=== PATIENT | male | born 1940 | race Caucasian/White ===

== ENCOUNTER 2017-06-25 10:22 | Inpatient (IN) | payer OTHER ==
--- NOTE | 2017-06-25 10:46 | PDOC ---
Attending Attestation - Resident Resident Name: ParasKhurram rangel - HPI HPI: 06/25/17 11:20 Pt presents to the ED complaining of a 5 day history of generalized malaise and lightheadness. Patient has a history of lung CA with mets to the brain and had last chemo on saturday. Denies vomiting, chest or abdominal pain or shortness of breath. Denies fevers or urinary complaints. Does complain of increased cough. - Physicial Exam PE: 06/25/17 11:54 agree with resident exam. Patient is alert and oriented x 3. Appears dehydrated, with dry muccous membranes. No abdominal tenderness. Patient is hypotensive and tachycardic on my initial exam. - Medical Decision Making 06/25/17 11:54 Pt presents to the ED with fever and hypotension. Clinical presentation is suggestive of both acute dehydration and sepsis. Will treat with aggressive IV hydration and broad spectrum antibiotics. Patient has a strong preference to be transferred to [facility] in [place], and his oncologist has arranged for his admission there. PAtient has been accepted for admission by Dr. Victor. Will arrange for transfer when blood pressure is improved.
[2017-06-25] MEDS ORDERED: ACETAMINOPHEN 1000 MG/100 ML VIAL (NON FORMULARY) IVPB ONE (10:47)
[2017-06-25] MEDS ORDERED: SODIUM CHLORIDE 0.9% 1000 ML INFUS.BAG IV ONE ×3 (10:47→12:15)
[2017-06-25] MEDS ORDERED: ACETAMINOPHEN INJECTION 100 ML IVPB ONE ×2 (10:48→19:40)
[2017-06-25 11:10] LABS: HEMATOCRIT 29.6 % (35.4-49); HEMOGLOBIN 10.3 GM/dL (11.7-16.9); MCH 33.6 pg (25.7-33.7); MCHC 34.8 g/dl (32.0-35.9); MEAN CELL VOLUME 96.5 fl (80-96); MEAN PLT VOLUME 7.2 fl (7.5-11.1); PLATELET COUNT 157 K/MM3 (134-434); RBC 3.07 M/mm3 (4.00-5.60)
[2017-06-25] MEDS ORDERED: VANCOMYCIN 1,000 MG in DEXTROSE 5%-WATER - 250 ML IVPB ONE (11:20)
[2017-06-25] MEDS ORDERED: PIPERACIL/TAZOB 3.375 GM 3.375 GM/50 ML PREMIX IVPB ONE ×2 (11:20→12:35)
[2017-06-25 11:22] LABS: INR 1.42 (0.82-1.09); PROTHROMBIN TIME (PATIENT) 16.1 SEC (9.98-11.88)
[2017-06-25 11:23] LABS: VENOUS PC02 34.3 mmHg (38-52); VENOUS PH 7.42 (7.32-7.42); VENOUS PO2 38.3 mmHg (28-48)
[2017-06-25 11:24] LABS: ACTIVATED PTT 23.6 SECONDS (26.9-34.4)
[2017-06-25 11:34] LABS: WHITE BLOOD COUNT 0.4 K/mm3 (4.0-10.0)
[2017-06-25] MEDS ORDERED: TBO-FILGRASTIM 480 MCG/0.8 ML DISP.SYRIN SQ ONE (11:34)
[2017-06-25] MEDS ORDERED: VANCOMYCIN 1 GRAM (PRE-DOCKED) 1,000 MG/250 ML BAG IVPB ONE (11:38)
[2017-06-25 11:40] LABS: ALBUMIN 2.1 g/dl (3.4-5.0); ALK PHOS 88 U/L (45-117); ANION GAP 9 (8-16); BILIRUBIN,TOTAL 0.8 mg/dL (0.2-1.0); BLOOD UREA NITROGEN 62 mg/dL (7-18); CALCIUM 7.5 mg/dL (8.5-10.1); CHLORIDE 105 mmol/L (98-107); CO2 23 mmol/L (21-32); CREATININE 1.7 mg/dL (0.7-1.3); GLUCOSE,RANDOM 95 mg/dL (74-106); POTASSIUM 5.2 mmol/L (3.5-5.1); SGOT/AST 23 U/L (15-37); SGPT/ALT 24 U/L (12-78); SODIUM 137 mmol/L (136-145); TOT PROT 5.2 g/dl (6.4-8.2)
--- NOTE | 2017-06-25 12:10 | PDOC ---
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 The patient states that he's felt weak since his last session of chemotherapy last week. He says his weakness has worsened and he has become "dizzy" which he describes as lightheadedness. He denies any symptoms of CP, SOB, fever, chills, nausea, vomiting, diarrhea, constipation, and dysuria. Past History - Past Medical History Allergies/Adverse Reactions: Allergies Allergy/AdvReac Type Severity Reaction Status Date / Time No Known Drug Allergies Allergy Verified 08/06/13 13:04 Home Medications: Ambulatory Orders Acetaminophen [Tylenol .Regular Strength -] 650 mg PO Q6HPO PRN #0 tablet Atorvastatin Ca [Lipitor] 10 mg PO DAILY #0 tablet 08/16/13 Aspirin [ASA -] 81 mg PO DAILY 06/25/17 Gabapentin [Neurontin -] 300 mg PO BID 06/25/17 Anemia: No Asthma: No Cancer: Yes (small cell lung ca mets to brain 03/22/17) Cardiac Disorders: No CVA: No COPD: No CHF: No Dementia: No Diabetes: No GI Disorders: No Disorders: No HTN: Yes Hypercholesterolemia: Yes Liver Disease: No Seizures: No Thyroid Disease: No Other medical history: on chemo at [place] - Surgical History Abdominal Surgery: No Appendectomy: No Cardiac Surgery: No Cholecystectomy: No Lung Surgery: No Neurologic Surgery: No Orthopedic Surgery: Yes (rt hip makoplasty 08/12/13; rt knee surgery 1975) - Suicide/Smoking/Psychosocial Hx Smoking History: Unknown if ever smoked Have you smoked in the past 12 months: Yes Cigars Per Day: 2 Information on smoking cessation initiated: No 'Breaking Loose' booklet given: 08/06/13 Hx Alcohol Use: No Drug/Substance Use Hx: No Substance Use Type: None Hx Substance Use Treatment: No Review of Systems - Review of Systems Able to Perform ROS?: Yes Comments:: 06/25/17 14:38 GENERAL/CONSTITUTIONAL: Positive for weakness and dizziness. No fever or chills. HEAD, EYES, EARS, NOSE AND THROAT: No change in vision. No ear pain or discharge. No sore throat. CARDIOVASCULAR: No chest pain, palpitations, or lightheadedness. RESPIRATORY: No cough, wheezing, shortness of breath, or hemoptysis. GASTROINTESTINAL: No nausea, vomiting, diarrhea, constipation, or abdominal pain. GENITOURINARY: No dysuria, frequency, hematuria, or change in urination. MUSCULOSKELETAL: No joint or muscle swelling or pain. No neck or back pain. SKIN: No rash or lesions. NEUROLOGIC: No headache, numbness, tingling, weakness, loss of consciousness, or change in strength/sensation. ENDOCRINE: No increased thirst. No abnormal weight change. HEMATOLOGIC/LYMPHATIC: No anemia, easy bleeding, or history of blood clots. ALLERGIC/IMMUNOLOGIC: No hives or skin allergy. Is the patient limited Albanian proficient: No *Physical Exam - Vital Signs Last Vital Signs Temp Pulse Resp BP Pulse Ox 102.3 F H 104 H 18 81/53 100 06/25/17 10:30 06/25/17 11:29 06/25/17 11:29 06/25/17 11:29 06/25/17 11:29 - Physical Exam Comments: 06/25/17 14:38 GENERAL: Well developed, well nourished. Awake. Mildly lethargic. HEENT: Normocephalic, atraumatic. Hearing grossly normal. Moist mucous membranes. PERRLA, EOMI. No conjunctival pallor. Sclera are non-icteric. NECK: Supple. Full ROM. No JVD. CARDIOVASCULAR: Regular rate and rhythm. No murmurs, rubs, or gallops. Distal pulses are 2+ and symmetric. PULMONARY: No evidence of respiratory distress. Diffuse coarse breath sounds. ABDOMINAL: Soft. Non-tender. Non-distended. No rebound or guarding. GENITOURINARY: No CVA tenderness bilaterally. MUSCULOSKELETAL: Normal range of motion at all joints. No bony deformities or tenderness. EXTREMITIES: No cyanosis. No clubbing. No edema. No calf tenderness. SKIN: Warm and dry. Normal capillary refill. No rashes. No jaundice. NEUROLOGICAL: Alert, awake, appropriate. Cranial nerves 2-12 intact. Normal speech. Gait is normal without ataxia. PSYCHIATRIC: Cooperative. Good eye contact. Appropriate mood and affect. Heart Score/ECG Review #1 ECG reviewed & interpreted by me at: 10:50 General ECG Interpretation: Sinus Rhythm, Normal Rate, Normal Intervals, No acute ischemic changes Compared to previous ECG there are: Previous ECG unavail 06/25/17 14:40 Sinus tach RBBB noted No acute ischemic changes Rate 123 QRS 130 QTc 475 ED Treatment Course - LABORATORY CBC & Chemistry Diagram: 06/25/17 11:04 06/25/17 11:04 - ADDITIONAL ORDERS Additional order review: Laboratory Results 06/25/17 06/25/17 06/25/17 11:20 11:04 11:04 PT with INR INR PTT (Actin FS) VBG pH 7.42 POC VBG pCO2 34.3 L POC VBG pO2 38.3 Mixed VBG HCO3 21.5 Sodium Potassium Chloride Carbon Dioxide Anion Gap BUN Creatinine Creat Clearance w eGFR Random Glucose Lactic Acid 2.8 H* Calcium Total Bilirubin AST ALT Alkaline Phosphatase Troponin I 0.16 H Total Protein Albumin 06/25/17 06/25/17 11:04 11:04 PT with INR 16.10 H INR 1.42 H PTT (Actin FS) 23.6 L D VBG pH POC VBG pCO2 POC VBG pO2 Mixed VBG HCO3 Sodium 137 Potassium 5.2 H Chloride 105 Carbon Dioxide 23 D Anion Gap 9 BUN 62 H D Creatinine 1.7 H D Creat Clearance w eGFR 39.18 Random Glucose 95 Lactic Acid Calcium 7.5 L Total Bilirubin 0.8 AST 23 D ALT 24 Alkaline Phosphatase 88 D Troponin I Total Protein 5.2 L D Albumin 2.1 L D 06/25/17 11:04 RBC 3.07 L MCV 96.5 H MCHC 34.8 RDW 15.0 MPV 7.2 L D Neutrophils % No Result Required. Lymphocytes % No Result Required. - RADIOLOGY Radiology Studies Ordered: Category Date Time Status CHEST X-RAY PORTABLE* [RAD] Stat Radiology 06/25/17 10:47 Taken - Medications Given in the ED: ED Medications Discontinued Medications Generic Name Dose Route Start Last Admin Trade Name Freq PRN Reason Stop Dose Admin Acetaminophen 1,000 mg 06/25/17 10:47 06/25/17 10:47 Ofirmev Injection - IVPB 06/25/17 10:48 1,000 mg ONCE ONE Administration Sodium Chloride 1,000 ml 06/25/17 10:47 06/25/17 10:40 Normal Saline - IV 06/25/17 10:48 1,000 ml ONCE ONE Administration Sodium Chloride 1,000 ml 06/25/17 11:31 06/25/17 10:55 Normal Saline - IV 06/25/17 11:32 1,000 ml ONCE ONE Administration Medical Decision Making - Medical Decision Making 06/25/17 10:56 The patient is a 76M with a PMH of lung ca s/p chemo and mets to the brain who presents with worsening weakness and dizziness. The patient had incoming vitals significant for hypotension (70's/40's), tachycardia to 130's, and febrile to 102.3. Sepsis protocol is being followed. I have spoken to the patient's oncologist and relayed the labs of WBC 400. She recommends starting neupogen. Pt's family requests transfer to [facility] in [place] where his physicians are. I have instructed them that he will not be transferred until he is stable. Family understands. 06/25/17 11:54 Dr. Galicia (oncology) [phone] Dr. Victor accepts admission for pt. Will call ER for transfer. Dr. Rodarte, ER, does not accept transfer until patient is stable. Family informed. 06/25/17 12:42 I have discussed DNR with the patient. Pt agrees and signed the DNR form. Pt continues to be hypotensive and on 3rd liter. I have discussed a central line and the patient refuses it. I have made it clear that this is the best route for giving pressors. Pt requested for access to his port. I told him if we could not access the port then we might be able to give pressors peripherally. Pt and family understand. 06/25/17 13:30 Dopamine was started. Pt is borderline hypotensive, 91/54. Continuing KVO fluids and dopamine. Dr. Varma accepts admission for ICU consulted for Dr. Pichardo who accepts primary admission. 06/25/17 13:51 CXR shows questionable cavitary process. Will put pt on airborne precautions with negative pressure room. 06/25/17 14:40 Pt improving on dopamine. Will continue infusion at 10. *DC/Admit/Observation/Transfer Diagnosis at time of Disposition: Sepsis Qualifiers: Sepsis type: sepsis due to unspecified organism Qualified Code(s): A41.9 - Sepsis, unspecified organism - Discharge Dispostion Condition at time of disposition: Critical Admit: Yes - Referrals Referrals: Alayna Pichardo MD [Primary Care Provider] - - Patient Instructions - Post Discharge Activity
[2017-06-25] MEDS ORDERED: PIPERACILLIN/TAZOB 3.375 GM 3.375 GM in DEXTROSE 5%-WATER - 50 ML IVPB ONE ×2 (12:15→13:15)
[2017-06-25] MEDS ORDERED: DOPAMINE 400 MG/D5W - 400,000 MCG/250 ML INFUS.BAG IVPB ONE (12:54)
[2017-06-25] MEDS: DOPAMINE 400 MG/D5W - 400,000 MCG/250 ML INFUS.BAG IVPB SCH (13:00)
[2017-06-25] MEDS ORDERED: NAPROXEN 500 MG TABLET (FP) PO ONE (13:12)
[2017-06-25 13:30] LABS: ANISOCYTOSIS 1+; PLATELET ESTIMATE ADEQUATE
[2017-06-25] MEDS ORDERED: PIPERACILLIN/TAZOB 3.375 GM 3.375 GM/50 ML BAG IVPB ONE (13:39)
--- NOTE | 2017-06-25 13:44 | EKG ---
Test Reason : Blood Pressure : / mmHG Vent. Rate : 123 BPM Atrial Rate : 123 BPM P-R Int : 132 ms QRS Dur : 130 ms QT Int : 332 ms P-R-T Axes : 047 049 002 degrees QTc Int : 475 ms SINUS TACHYCARDIA RIGHT BUNDLE BRANCH BLOCK INFERIOR INFARCT (CITED ON OR BEFORE 06-AUG-2013) ABNORMAL ECG Confirmed by Arturo Davidson MD ([id number]) on 06/25/2017 1:43:47 PM Referred By: Confirmed By:Arturo Davidson MD
[2017-06-25 14:00] LABS: URINE APPEARANCE CLEAR; URINE BILIRUBIN NEGATIVE (<2.0 mg/dL); URINE BLOOD NEGATIVE (NEGATIVE); URINE COLOR YELLOW; URINE GLUCOSE (UA) NEGATIVE (NEGATIVE); URINE KETONE NEGATIVE (NEGATIVE); URINE LEUK ESTERASE NEGATIVE (NEGATIVE); URINE NITRITE NEGATIVE (NEGATIVE); URINE PROTEIN NEGATIVE (NEGATIVE); URINE UROBILINOGEN NEGATIVE mg/dL (0.2-1.0)
--- NOTE | 2017-06-25 15:11 | PN ---
Teaching Attending Note Name of Resident: Ramon Pelayo ATTENDING PHYSICIAN STATEMENT I saw and evaluated the patient. I reviewed the resident's note and discussed the case with the resident. I agree with the resident's findings and plan as documented. SUBJECTIVE: 76 M, recent diagnosis of small cell lung CA (diagnosed by FOB), with brain mets, former significant smoker, and HTN. Has received 3 cycles of chemotherapy (last was completed on Saturday). He was not given Neupogen as his WBC was high (Has been on dexamethasone). No travel history or sick contacts. No hemoptysis. No night sweats. Reports generalized weakness and fatigue. He does have some dizziness. CXR: Well circumscribed left mid lung density (patient reports his tumor is on the left). Patient has signed a DNR/DNI. He is currently on 10mcq Dopamine for hemodynamic support via his R[facility] Medi-port. The site appears clean. He has received 3 L of IVF Intake & Output 06/22/17 06/23/17 06/24/17 06/25/17 23:59 23:59 23:59 23:59 Weight 200 lb Last Vital Signs Temp Pulse Resp BP Pulse Ox 102.3 F H 120 H 18 112/52 99 06/25/17 10:30 06/25/17 14:21 06/25/17 14:21 06/25/17 14:21 06/25/17 14:21 Active Medications Dopamine HCl/Dextrose (Dopamine 400 Mg/D5w -) 400,000 mcg in 250 mls @ 17.01 mls/hr IVPB TITR SHIRLEY; 5 MCG/KG/MIN PRN Reason: Protocol Last Titration: 06/25/17 14:05 Dose: 10 mcg/kg/min, 34.019 mls/hr GENERAL: Drowsy, mildly tachypneic at rest HEENT: Normocephalic, atraumatic. (+) Dry mucous membranes. NECK: Supple. Full ROM. No JVD. CARDIOVASCULAR: Tachycardia PULMONARY: Mildy tachypneic at rest, scattered rhonchi ABDOMINAL: Soft. Non-tender. Non-distended. No rebound or guarding. GENITOURINARY: No CVA tenderness bilaterally. MUSCULOSKELETAL: Normal range of motion at all joints. No bony deformities or tenderness. EXTREMITIES: No cyanosis. No clubbing. No edema. No calf tenderness. SKIN: Warm and dry. Normal capillary refill. No rashes. No jaundice. NEUROLOGICAL: Non-focal PSYCHIATRIC: Cooperative. Laboratory Results 06/25/17 06/25/17 06/25/17 11:20 11:04 11:04 PT with INR INR PTT (Actin FS) VBG pH 7.42 POC VBG pCO2 34.3 L POC VBG pO2 38.3 Mixed VBG HCO3 21.5 Sodium Potassium Chloride Carbon Dioxide Anion Gap BUN Creatinine Creat Clearance w eGFR Random Glucose Lactic Acid 2.8 H* Calcium Total Bilirubin AST ALT Alkaline Phosphatase Troponin I 0.16 H Total Protein Albumin 06/25/17 06/25/17 11:04 11:04 PT with INR 16.10 H INR 1.42 H PTT (Actin FS) 23.6 L D VBG pH POC VBG pCO2 POC VBG pO2 Mixed VBG HCO3 Sodium 137 Potassium 5.2 H Chloride 105 Carbon Dioxide 23 D Anion Gap 9 BUN 62 H D Creatinine 1.7 H D Creat Clearance w eGFR 39.18 Random Glucose 95 Lactic Acid Calcium 7.5 L Total Bilirubin 0.8 AST 23 D ALT 24 Alkaline Phosphatase 88 D Troponin I Total Protein 5.2 L D Albumin 2.1 L D 06/25/17 11:04 RBC 3.07 L MCV 96.5 H MCHC 34.8 RDW 15.0 MPV 7.2 L D Neutrophils % No Result Required. Lymphocytes % No Result Required. IMP: Septic Shock: source to be determined R/O PNA R/O UTI Known metastatic Small Cell Lung CA to brain Neutropenia Likely COPD PLAN: Aggressive IVF resuscitation Pressors to maintain MAP>65 : Can change to Levophed via the Medi-port if needed Strict I&O O2 as needed BD TX PRN ID consult for broad spectrum ABX Follow lactate Neupogen has been ordered Patient has made himself DNR/DNI ICU monitoring Dr Varma Critical care time spent in reviewing chart, evaluating patient and formulating plan - 36 minutes.
--- NOTE | 2017-06-25 15:46 | CONSULT ---
Consultation: ICU Resident note HISTORY OF PRESENT ILLNESS: 76yo F with significant history of Small cell lung carcinoma (dx'd February 2017; on 3rd cycle of chemotherapy which ended on last Saturday) with brain mets, HTN, HLD, osteoarthritis, and spinal stenosis who presented to the ED with worsening weakness and lightheadedness. He states that he has felt weak since his last session of chemotherapy on 06/19. Pt reports being treated at [facility] under Dr. Rosy Galicia and that he is undergoing his third cycle of chemotherapy with an agent he does not remember. Pt also reports being diagnosed with brain mets recently and undergoing treatment with 4mg Dexamethasone TID. In addition, pt endorses some loose stools this past week without any blood noted. He reports some foul-smelling BM's. Pt denies any travel and only had a pasta dish at a regular restaurant. In the ED he was found to be hypotensive and despite 3L IVF he required dopamine to be initiated for pressure support. Currently, pt still feels very weak, however he has no other complaints at this time. Pt denies any headaches, visual changes, nausea, vomiting, SOB, CP/ discomfort, palpitations, abdominal pain, dysuria, polyuria, sick contacts. Pt reports some slight edema in his lower extremities due to his dexamethasone and chemotherapy regiments, however he denies it prior to his dexamethasone use. ER Course notables: 1) WBC 0.4 with ANC of 256 2) CXR with L cavitary lesion noted; suspect pleural effusion vs infiltrate on L lower base of lung 3) 3L NS; dopamine 10mcg 4) Blood cultures and urine cultures drawn PHYSICAL EXAMINATION Vital Signs Initial presentation 06/25/17 06/25/17 10:30 10:50 Temperature 102.3 F H Pulse Rate 125 H Pulse Rate [ 118 H Apical] Respiratory 18 16 Rate Blood Pressure 102/75 Blood Pressure 76/49 [Left Arm] O2 Sat by Pulse 100 99 Oximetry (%) Vital Signs Current 06/25/17 15:30 Temperature Pulse Rate Pulse Rate [ 99 H Apical] Respiratory 18 Rate Blood Pressure Blood Pressure 96/41 [Left Arm] O2 Sat by Pulse 99 Oximetry (%) GENERAL: Mild distress, awake, alert and oriented x3, in Trendelenburg laying in bed HEENT: NC/AT, EOMI, ROSE M[place], sclera anicteric, no plaques/exudates in posterior oropharynx or tongue, dry-moist mucosa NECK: No JVD, no lymphadenopathy, soft LUNGS: Rhonchous lung sounds L>R, wheezing noted bibasillarly, no rales. Currently on NC. HEART: RRR, normal S1 and S2 with 2/6 systolic murmur heard best at the LLSB ABDOMEN: Soft, nontender, nondistended, normoactive bowel sounds, no guarding, no hepatomegaly to percussion or palpation, no splenomegaly. No shifting dullness appreciated MUSCULOSKELETAL: No pain with palpation of spinous processes. No CVA tenderness. EXTREMITIES: 2+ DP pulses, warm, well-perfused. 1+ pitting edema PSYCHIATRIC: Cooperative. Good eye contact. Appropriate mood and affect. SKIN: Warm, dry, normal turgor, no rashes or lesions noted. Mediport noted on L chest wall without any erythema noted. Laboratory Results - last 24 hr 06/25/17 06/25/17 06/25/17 11:04 11:04 11:04 WBC 0.4 L* D RBC 3.07 L Hgb 10.3 L D Hct 29.6 L MCV 96.5 H MCH 33.6 MCHC 34.8 RDW 15.0 Plt Count 157 MPV 7.2 L D Neutrophils % No Result Required. Neutrophils % (Manual) 64.0 Band Neutrophils % 6.0 Lymphocytes % No Result Required. Lymphocytes % (Manual) 27.0 Monocytes % (Manual) 8 Hypochromia 1+ Platelet Estimate Adequate Platelet Comment No clumping noted Anisocytosis 1+ PT with INR 16.10 H INR 1.42 H PTT (Actin FS) 23.6 L D VBG pH POC VBG pCO2 POC VBG pO2 Mixed VBG HCO3 Sodium 137 Potassium 5.2 H Chloride 105 Carbon Dioxide 23 D Anion Gap 9 BUN 62 H D Creatinine 1.7 H D Creat Clearance w eGFR 39.18 Random Glucose 95 Lactic Acid Calcium 7.5 L Total Bilirubin 0.8 AST 23 D ALT 24 Alkaline Phosphatase 88 D Troponin I Total Protein 5.2 L D Albumin 2.1 L D Urine Color Urine Appearance Urine pH Ur Specific Saxis Urine Protein Urine Glucose (UA) Urine Ketones Urine Blood Urine Nitrite Urine Bilirubin Urine Urobilinogen Ur Leukocyte Esterase 06/25/17 06/25/17 06/25/17 11:04 11:04 11:20 WBC RBC Hgb Hct MCV MCH MCHC RDW Plt Count MPV Neutrophils % Neutrophils % (Manual) Band Neutrophils % Lymphocytes % Lymphocytes % (Manual) Monocytes % (Manual) Hypochromia Platelet Estimate Platelet Comment Anisocytosis PT with INR INR PTT (Actin FS) VBG pH 7.42 POC VBG pCO2 34.3 L POC VBG pO2 38.3 Mixed VBG HCO3 21.5 Sodium Potassium Chloride Carbon Dioxide Anion Gap BUN Creatinine Creat Clearance w eGFR Random Glucose Lactic Acid 2.8 H* Calcium Total Bilirubin AST ALT Alkaline Phosphatase Troponin I 0.16 H Total Protein Albumin Urine Color Urine Appearance Urine pH Ur Specific Saxis Urine Protein Urine Glucose (UA) Urine Ketones Urine Blood Urine Nitrite Urine Bilirubin Urine Urobilinogen Ur Leukocyte Esterase 06/25/17 06/25/17 13:43 14:27 WBC RBC Hgb Hct MCV MCH MCHC RDW Plt Count MPV Neutrophils % Neutrophils % (Manual) Band Neutrophils % Lymphocytes % Lymphocytes % (Manual) Monocytes % (Manual) Hypochromia Platelet Estimate Platelet Comment Anisocytosis PT with INR INR PTT (Actin FS) VBG pH POC VBG pCO2 POC VBG pO2 Mixed VBG HCO3 Sodium Potassium Chloride Carbon Dioxide Anion Gap BUN Creatinine Creat Clearance w eGFR Random Glucose Lactic Acid 1.9 Calcium Total Bilirubin AST ALT Alkaline Phosphatase Troponin I Total Protein Albumin Urine Color Yellow Urine Appearance Clear Urine pH 5.0 Ur Specific Saxis 1.014 Urine Protein Negative Urine Glucose (UA) Negative Urine Ketones Negative Urine Blood Negative Urine Nitrite Negative Urine Bilirubin Negative Urine Urobilinogen Negative Ur Leukocyte Esterase Negative Active Medications Generic Name Dose Route Start Last Admin Trade Name Freq PRN Reason Stop Dose Admin Dopamine HCl/Dextrose 400,000 mcg in 250 mls @ 17.01 mls/hr 06/25/17 13:00 14:05 Dopamine 400 Mg/D5w - IVPB 10 mcg/kg/min TITR SHIRLEY 34.019 mls/hr Protocol Titration 5 MCG/KG/MIN ASSESSMENT/PLAN: Neuro: Neurologically intact Respiratory: Maintain SpO2 >88-90% Pt is DNI CXR showing cavitary lesion --CT Chest w/o contrast ordered for assessment Cardiovascular: Systolic murmur --Echocardiogram r/o CHF and valvular abnormalities History of HTN --Hold anithypertensives Elevated Troponins --Most likely demand ischemia in setting of hypotension/septic shock --Will trend values until downtrending --ECG showing ____ Renal: Acute Kidney Injury --Cr 1.7 with baseline 0.9-1.0 --Most likely prerenal etiology with BUN:Cr ratio >20:1 --Will obtain urine electrolytes --Will repeat BMP later and reassess kidney function after IVF hydration ID: Septic shock --CXR showing cavitary lesion and delineated L pleural effusion --R/o TB with AFB staining (given pt hx of hemoptysis) --r/o neutropenic PNA vs. empyema vs. with CT Chest w/o contrast if hemodynamically stable on pressors --Airborne Isolation precautions to continue --Negative pressure room --Currently on Dopamine 10mcg started in ED through chemoport --If pt requires further hemodynamic support put on Levophed and titrate up as needed --IVF as below; bolus as needed --Continue vancomycin and Zosyn for now; will cover for 24hr period --ID on board --Will discuss about antibiotic choice and possible expanding to atypical coverage --F/u Blood cultures, urine cultures --C diff (history of foul stools) culture --Stool ova and parasites given immunocompromised state --Ofirmev IVPB q6h PRN for fever (do not exceed 4gm in 24h period) --LA 2.8, 1.9; will trend one more considering last is borderline elevated , but resolving with fluid hydration Hematology/Oncology: Small cell lung carcinoma with brain mets --Being treated at [facility] by Dr. Rosy Galicia --Was previously on Dexamethasone for brain mets --Last chemo: Last Saturday06/19/2017 on 3rd cycle --Consulted oncology; recs appreciated --Need to cover dexamethasone chronic use to avoid adrenal insufficiency --Ordered 4mg IVP once now --Granix as below --Will attempt to contact Dr. Galicia about treatment Severe Neutropenia --ANC 256 --Granix given once in ED at 1135h (06/25/2017) --Will likely need more doses, but will reassess next morning --Cutoff is ANC 1500 FEN: Fluids: NS@125cc/hr (received 3L bolus in ED); continue to bolus as needed Electrolyte abnormalities: Hyperkalemia w/o acute ECG changes; repeat tonight ; possible Nutrition: PPX: DVT - SCDs GI - not currently indicated Code status: DNR/DNI Dispo: Pt hemodynamically requiring pressors; ICU monitoring Ramon Pelayo DO - IM PGY-1 Visit type - Emergency Visit Emergency Visit: No - New Patient This patient is new to me today: Yes Date on this admission: 06/26/17 - Critical Care Critical Care patient: Yes Total Critical Care Time (in minutes): 45 Critical Care Statement: The care of this patient involved high complexity decision making to prevent further life threatening deterioration of the patient 's condition and/or to evaluate & treat vital organ system(s) failure or risk of failure.
[2017-06-25] MEDS ORDERED: SODIUM CHLORIDE 1,000 ML IV SCH (16:15)
[2017-06-25] MEDS ORDERED: FAMOTIDINE IV 20 MG/12 ML VIAL IVPUSH SCH ×2 (18:13→22:00)
[2017-06-25] MEDS ORDERED: FAMOTIDINE 20 MG/50 ML IVPB 20 MG/50 ML MG IVPB ONE (18:16)
[2017-06-25 19:06] VITALS: BMI 29.3
[2017-06-25] MEDS: ACETAMINOPHEN 1000 MG/100 ML VIAL (NON FORMULARY) IVPB PRN (19:20)
[2017-06-25] MEDS ORDERED: PIPERACIL/TAZOB 3.375 GM 3.375 GM/50 ML PREMIX IVPB SCH (21:45)
[2017-06-25] MEDS ORDERED: PIPERACILLIN/TAZOB 3.375 GM 3.375 GM in DEXTROSE 5%-WATER - 50 ML IVPB SCH (22:00)
[2017-06-25] MEDS ORDERED: DEXAMETHASONE SOD PHOSPHATE 4 MG/1 ML VIAL IVPUSH ONE (22:36)
[2017-06-25] MEDS: FAMOTIDINE 20 MG/50 ML IVPB 20 MG/50 ML MG IVPB SCH (22:45)
[2017-06-25] MEDS: PIPERACILLIN/TAZOB 2.25 GM 2.25 GM in DEXTROSE 5%-WATER - 50 ML IVPB SCH (22:47)
[2017-06-25 23:19] LABS: ANION GAP 9 (8-16); BLOOD UREA NITROGEN 50 mg/dL (7-18); CHLORIDE 108 mmol/L (98-107); CO2 22 mmol/L (21-32); CREATININE 1.3 mg/dL (0.7-1.3); GLUCOSE,RANDOM 115 mg/dL (74-106); POTASSIUM 4.1 mmol/L (3.5-5.1); SODIUM 139 mmol/L (136-145)
[2017-06-26] MEDS: PIPERACILLIN/TAZOB 2.25 GM 2.25 GM in DEXTROSE 5%-WATER - 50 ML IVPB SCH (01:23)
[2017-06-26 06:20] LABS: HEMATOCRIT 23.3 % (35.4-49); HEMOGLOBIN 8.4 GM/dL (11.7-16.9); MCH 34.7 pg (25.7-33.7); MEAN CELL VOLUME 96.4 fl (80-96); MEAN PLT VOLUME 7.3 fl (7.5-11.1); PLATELET COUNT 97 K/MM3 (134-434); RBC 2.42 M/mm3 (4.00-5.60); RDW 14.9 % (11.9-15.9)
[2017-06-26 06:33] LABS: WHITE BLOOD COUNT 0.3 K/mm3 (4.0-10.0)
[2017-06-26 07:03] LABS: ALBUMIN 1.8 g/dl (3.4-5.0); ANION GAP 9 (8-16); BLOOD UREA NITROGEN 44 mg/dL (7-18); CALCIUM 7.7 mg/dL (8.5-10.1); CHLORIDE 108 mmol/L (98-107); CO2 24 mmol/L (21-32); CREATININE 1.1 mg/dL (0.7-1.3); GLUCOSE,RANDOM 97 mg/dL (74-106); MAGNESIUM 1.1 mg/dL (1.8-2.4); PHOSPHOROUS 3.6 mg/dL (2.5-4.9); POTASSIUM 3.7 mmol/L (3.5-5.1); SGOT/AST 20 U/L (15-37); SGPT/ALT 21 U/L (12-78); SODIUM 141 mmol/L (136-145); TOT PROT 4.4 g/dl (6.4-8.2)
[2017-06-26 07:04] LABS: ALK PHOS 74 U/L (45-117)
--- NOTE | 2017-06-26 08:37 | PN ---
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 Admitted with sepsis and neutropenia - Current Medication List Current Medications: Active Medications Acetaminophen (Ofirmev Injection -) 1,000 mg IVPB Q6H PRN PRN Reason: FEVER Last Admin: 06/25/17 19:20 Dose: 1,000 mg Dopamine HCl/Dextrose (Dopamine 400 Mg/D5w -) 400,000 mcg in 250 mls @ 17.01 mls/hr IVPB TITR SHIRLEY; 5 MCG/KG/MIN PRN Reason: Protocol Last Titration: 06/25/17 14:05 Dose: 10 mcg/kg/min, 34.019 mls/hr Famotidine/Sodium Chloride (Pepcid 20 Mg Premixed Ivpb -) 20 mg in 50 mls @ 144 mls/hr IVPB BID SHIRLEY Last Admin: 06/25/17 22:45 Dose: 144 mls/hr Piperacillin Sod/Tazobactam (Sod 2.25 gm/ Dextrose) 50 mls @ 100 mls/hr IVPB Q8H-IV SHIRLEY PRN Reason: Protocol Last Admin: 06/26/17 01:23 Dose: Not Given Sodium Chloride (Normal Saline -) 1,000 mls @ 50 mls/hr IV ASDIR SHIRLEY Magnesium Sulfate (Magnesium Sulfate) 2 gm IVPB ONCE ONE Stop: 06/26/17 08:10 - Objective Vital Signs: Vital Signs Temperature 98.6 F 06/26/17 06:00 Pulse Rate 85 06/26/17 08:00 Respiratory Rate 26 H 06/26/17 08:00 Blood Pressure 113/55 06/26/17 08:00 O2 Sat by Pulse Oximetry (%) 99 06/25/17 21:00 Constitutional: Yes: Mild Distress Eyes: Yes: WNL HENT: Yes: WNL Neck: Yes: WNL Cardiovascular: Yes: Regular Rate and Rhythm Respiratory: Yes: On Nasal O2 Gastrointestinal: Yes: Normal Bowel Sounds ...Rectal Exam: Yes: Deferred Genitourinary: Yes: WNL Musculoskeletal: Yes: Muscle Weakness Extremities: Yes: WNL Edema: No Neurological: Yes: Alert Labs: CBC, BMP 06/26/17 06:05 06/26/17 06:05 INR, PTT INR 1.42 (0.82-1.09) H 06/25/17 11:04 Assessment/Plan Oncology consult Dr Montano
[2017-06-26] MEDS ORDERED: MAGNESIUM SULF 50% (8.12 MEQ/2 ML-1 GM VIAL) IVPB ONE (09:00)
[2017-06-26] MEDS: SODIUM CHLORIDE 1,000 ML IV SCH (09:00)
--- NOTE | 2017-06-26 09:21 | PN ---
Physical Exam: SUBJECTIVE: Patient seen and examined in the ICU. Pt reports feeling much better today compared to yesterday, though pt endorses still feeling weak. Pt reports cough productive of white sputum. Pt denies headache, lightheadedness, dizziness, fever, chills, chest pain, sob, abdominal pain. Pt on pressors. OBJECTIVE: Vital Signs Period Temp Pulse Resp BP Sys/Cervantes Pulse Ox Last 24 Hr 98.6 F-102.3 F 85-125 16-26 76-129/41-86 95-100 GENERAL: The patient is awake, alert, and fully oriented, in no acute distress. HEAD: Normal with no signs of trauma. NECK: Trachea midline, full range of motion, supple. LUNGS: Scattered rhonchi appreciated. No crackles or accessory muscle use. HEART: Regular rate and rhythm, +S1/S2. ABDOMEN: Soft, nontender, nondistended, normoactive bowel sounds, no guarding. EXTREMITIES: Pedal edema noted and 1+ edema to Left LE. Tequila capillary refill appreciated. PSYCH: Normal mood, normal affect. Laboratory Results - last 24 hr 06/25/17 06/25/17 06/25/17 11:04 11:04 11:04 WBC 0.4 L* D RBC 3.07 L Hgb 10.3 L D Hct 29.6 L MCV 96.5 H MCH 33.6 MCHC 34.8 RDW 15.0 Plt Count 157 MPV 7.2 L D Neutrophils % No Result Required. Neutrophils % (Manual) 64.0 Band Neutrophils % 6.0 Lymphocytes % No Result Required. Lymphocytes % (Manual) 27.0 Monocytes % (Manual) 8 Hypochromia 1+ Platelet Estimate Adequate Platelet Comment No clumping noted Anisocytosis 1+ PT with INR 16.10 H INR 1.42 H PTT (Actin FS) 23.6 L D VBG pH POC VBG pCO2 POC VBG pO2 Mixed VBG HCO3 Sodium 137 Potassium 5.2 H Chloride 105 Carbon Dioxide 23 D Anion Gap 9 BUN 62 H D Creatinine 1.7 H D Creat Clearance w eGFR 39.18 Random Glucose 95 Lactic Acid Calcium 7.5 L Phosphorus Magnesium Total Bilirubin 0.8 AST 23 D ALT 24 Alkaline Phosphatase 88 D Troponin I Total Protein 5.2 L D Albumin 2.1 L D Urine Color Urine Appearance Urine pH Ur Specific Manito Urine Protein Urine Glucose (UA) Urine Ketones Urine Blood Urine Nitrite Urine Bilirubin Urine Urobilinogen Ur Leukocyte Esterase 06/25/17 06/25/17 06/25/17 11:04 11:04 11:20 WBC RBC Hgb Hct MCV MCH MCHC RDW Plt Count MPV Neutrophils % Neutrophils % (Manual) Band Neutrophils % Lymphocytes % Lymphocytes % (Manual) Monocytes % (Manual) Hypochromia Platelet Estimate Platelet Comment Anisocytosis PT with INR INR PTT (Actin FS) VBG pH 7.42 POC VBG pCO2 34.3 L POC VBG pO2 38.3 Mixed VBG HCO3 21.5 Sodium Potassium Chloride Carbon Dioxide Anion Gap BUN Creatinine Creat Clearance w eGFR Random Glucose Lactic Acid 2.8 H* Calcium Phosphorus Magnesium Total Bilirubin AST ALT Alkaline Phosphatase Troponin I 0.16 H Total Protein Albumin Urine Color Urine Appearance Urine pH Ur Specific Manito Urine Protein Urine Glucose (UA) Urine Ketones Urine Blood Urine Nitrite Urine Bilirubin Urine Urobilinogen Ur Leukocyte Esterase 06/25/17 06/25/17 06/25/17 13:43 14:27 20:00 WBC RBC Hgb Hct MCV MCH MCHC RDW Plt Count MPV Neutrophils % Neutrophils % (Manual) Band Neutrophils % Lymphocytes % Lymphocytes % (Manual) Monocytes % (Manual) Hypochromia Platelet Estimate Platelet Comment Anisocytosis PT with INR INR PTT (Actin FS) VBG pH POC VBG pCO2 POC VBG pO2 Mixed VBG HCO3 Sodium Potassium Chloride Carbon Dioxide Anion Gap BUN Creatinine Creat Clearance w eGFR Random Glucose Lactic Acid 1.9 Calcium Phosphorus Magnesium Total Bilirubin AST ALT Alkaline Phosphatase Troponin I 0.17 H Total Protein Albumin Urine Color Yellow Urine Appearance Clear Urine pH 5.0 Ur Specific Manito 1.014 Urine Protein Negative Urine Glucose (UA) Negative Urine Ketones Negative Urine Blood Negative Urine Nitrite Negative Urine Bilirubin Negative Urine Urobilinogen Negative Ur Leukocyte Esterase Negative 06/25/17 06/25/17 06/26/17 21:50 21:50 06:05 WBC 0.3 L* RBC 2.42 L D Hgb 8.4 L D Hct 23.3 L D MCV 96.4 H MCH 34.7 H MCHC 36.0 H RDW 14.9 Plt Count 97 L D MPV 7.3 L Neutrophils % Neutrophils % (Manual) Band Neutrophils % Lymphocytes % Lymphocytes % (Manual) Monocytes % (Manual) Hypochromia Platelet Estimate Platelet Comment Anisocytosis PT with INR INR PTT (Actin FS) VBG pH POC VBG pCO2 POC VBG pO2 Mixed VBG HCO3 Sodium 139 Potassium 4.1 D Chloride 108 H Carbon Dioxide 22 Anion Gap 9 BUN 50 H Creatinine 1.3 D Creat Clearance w eGFR Random Glucose 115 H D Lactic Acid 1.4 Calcium 7.0 L Phosphorus Magnesium Total Bilirubin AST ALT Alkaline Phosphatase Troponin I Total Protein Albumin Urine Color Urine Appearance Urine pH Ur Specific Manito Urine Protein Urine Glucose (UA) Urine Ketones Urine Blood Urine Nitrite Urine Bilirubin Urine Urobilinogen Ur Leukocyte Esterase 06/26/17 06:05 WBC RBC Hgb Hct MCV MCH MCHC RDW Plt Count MPV Neutrophils % Neutrophils % (Manual) Band Neutrophils % Lymphocytes % Lymphocytes % (Manual) Monocytes % (Manual) Hypochromia Platelet Estimate Platelet Comment Anisocytosis PT with INR INR PTT (Actin FS) VBG pH POC VBG pCO2 POC VBG pO2 Mixed VBG HCO3 Sodium 141 Potassium 3.7 Chloride 108 H Carbon Dioxide 24 Anion Gap 9 BUN 44 H Creatinine 1.1 Creat Clearance w eGFR > 60 Random Glucose 97 Lactic Acid Calcium 7.7 L Phosphorus 3.6 Magnesium 1.1 L Total Bilirubin 1.0 D AST 20 ALT 21 Alkaline Phosphatase 74 Troponin I Total Protein 4.4 L Albumin 1.8 L Urine Color Urine Appearance Urine pH Ur Specific Manito Urine Protein Urine Glucose (UA) Urine Ketones Urine Blood Urine Nitrite Urine Bilirubin Urine Urobilinogen Ur Leukocyte Esterase Active Medications Generic Name Dose Route Start Last Admin Trade Name Freq PRN Reason Stop Dose Admin Acetaminophen 1,000 mg 06/25/17 16:10 06/25/17 19:20 Ofirmev Injection - IVPB 1,000 mg Q6H PRN Administration FEVER Dopamine HCl/Dextrose 400,000 mcg in 250 mls @ 17.01 mls/hr 06/25/17 13:00 14:05 Dopamine 400 Mg/D5w - IVPB 10 mcg/kg/min TITR SHIRLEY 34.019 mls/hr Protocol Titration 5 MCG/KG/MIN Famotidine/Sodium Chloride 20 mg in 50 mls @ 144 mls/hr 06/25/17 22:30 22:45 Pepcid 20 Mg Premixed Ivpb - IVPB 144 mls/hr BID SHIRLEY Administration Piperacillin Sod/Tazobactam 50 mls @ 100 mls/hr 06/26/17 02:00 06/26/17 01:23 Sod 2.25 gm/ Dextrose IVPB Not Given Q8H-IV SHIRLEY Protocol Sodium Chloride 1,000 mls @ 50 mls/hr 06/26/17 08:11 Normal Saline - IV ASDIR SHIRLEY Magnesium Sulfate 2 gm 06/26/17 08:09 Magnesium Sulfate IVPB 06/26/17 08:10 ONCE ONE IMAGIN06/25/17 CXR -> Left hemithorax with questionable cavitary process 06/25/[address] -> Large Left upper lobe masslike opacity with cavitation (Ddx: cavitary malignant neoplasm vs post-treatment effect vs superimposed cavitary lesion like TB). Irregular nodule opacity in Left lower lobe and vague groundglass opacities in Right lower lobe, possibly infectious vs inflammatory. 18mm solid Left upper lobe nodule, and irregular 9-10mm solid Right upper lobe nodule noted. Segmental atelectasis in lingula noted. 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 # neutropenic septic shock - likely 2/2 lung source - neutropenia -> continue Granix daily - afebrile since last evening -> Ofirmev prn for fever - IVFs - on pressors: Dopamine (reduced from 10 to 4 mcg) - maintain MAP > 65 - O2 prn - Day 1 of IV Zosyn, IV Vanc given in the ER - ID (Dr. Coker) recs appreciated - maintain droplet precaution with N95 masks 2/2 cavitary lesion in lung - f/u blood, urine, sputum, and c.diff cultures # Small Cell Lung Ca with mets to brain - being treated at [facility] by Dr. Rosy Galicia - just completed third cycle of chemotherapy (last dose 06/19/17) - has home med of Dexamethasone for brain mets - Oncology (Dr. Issa) recs appreciated # acute anemia - transfuse for hgb < 7.0 - monitor for overt s/s of bleeding - f/u CBC # ROSANGELA - resolved - Cr back to baseline 0.9-1.0 # troponinemia - likely 2/2 demand ischemia related to septic shock - peaked at 0.17, now trending down - no need to trend further # htn - hold home meds as pt is on pressors # FEN - Fluids: NS @ 50 ml/hr - Electrolytes: hypomagnesemia repleted with Magnesium Sulfate 1g IVPB, continue to monitor - Nutrition: soft diet # Prophylaxis - DVT ppx with tequila SCDs (no chemoprophylaxis 2/2 thrombocytopenia) - GI ppx with Pepcid # dispo - Pt is DNR/DNI - continue ICU monitoring while requiring pressors Visit type - Emergency Visit Emergency Visit: Yes ED Registration Date: 06/25/17 Care time: The patient presented to the Emergency Department on the above date and was hospitalized for further evaluation of their emergent condition. - New Patient This patient is new to me today: Yes Date on this admission: 06/26/17 - Critical Care Critical Care patient: Yes Total Critical Care Time (in minutes): 45 Critical Care Statement: The care of this patient involved high complexity decision making to prevent further life threatening deterioration of the patient 's condition and/or to evaluate & treat vital organ system(s) failure or risk of failure.
--- NOTE | 2017-06-26 09:56 | CON.ID ---
Consult Consult Specialty:: infectious diseases Referred by:: Reason for Consultation:: sepsis - History of Present Illness Chief Complaint: ams weakness lethargy History of Present Illness: 76yo F with significant history of Small cell lung carcinoma diagnosed recently on 3rd cycle of chemotherapy which ended on last Saturday also patient with brain mets, HTN, HLD, osteoarthritis, and spinal stenosis admitted to icu with worsening weakness and lightheadedness. He states that he has felt weak since his last session of chemotherapy on 06/19. w. Pt also reports being diagnosed with brain mets recently and undergoing treatment with 4mg Dexamethasone TID. In addition, pt endorses some loose stools this past week without any blood noted. He reports some foul-smelling BM's. patient mentions that he literally passed out and his daughter is in the room with him. He did not know what was happening and was found to be hypotensive and febrile and was admitted to icu and was started on dopamin. according to the patient his wbc was pretty high intially after chemo and he refused neulasta patch post chemo. denies any sick contacts or travel. currently patient is feeling better.mental status has improved still on dopamine drip about 4 mcg and maintaining bp patinet currently appears to be comfortable - History Source History Provided By: Patient, Family Member Limitations to Obtaining History: No Limitations - Alcohol/Substance Use Hx Alcohol Use: No - Smoking History Smoking history: Unknown if ever smoked Have you smoked in the past 12 months: Yes Home Medications - Allergies Allergies/Adverse Reactions: Allergies Allergy/AdvReac Type Severity Reaction Status Date / Time No Known Drug Allergies Allergy Verified 08/06/13 13:04 - Home Medications Home Medications: Ambulatory Orders Acetaminophen [Tylenol .Regular Strength -] 650 mg PO Q6HPO PRN #0 tablet Atorvastatin Ca [Lipitor] 10 mg PO DAILY #0 tablet 08/16/13 Aspirin [ASA -] 81 mg PO DAILY 06/25/17 Dexamethasone 4 mg PO TID 06/25/17 Gabapentin [Neurontin -] 300 mg PO TID 06/25/17 Telmisartan/Hydrochlorothiazid [Micardis Hct 80-25 mg Tablet] 1 each PO DAILY Review of Systems - Review of Systems Constitutional: reports: Fever Eyes: reports: No Symptoms HENT: reports: No Symptoms Neck: reports: No Symptoms Cardiovascular: reports: No Symptoms Respiratory: reports: SOB Gastrointestinal: reports: Diarrhea Genitourinary: reports: No Symptoms Musculoskeletal: reports: No Symptoms Integumentary: reports: No Symptoms Neurological: reports: Change in LOC Endocrine: reports: No Symptoms Hematology/Lymphatic: reports: No Symptoms Psychiatric: reports: No Symptoms Physical Exam Vital Signs: Vital Signs Temperature 98.6 F 06/26/17 06:00 Pulse Rate 85 06/26/17 08:00 Respiratory Rate 26 H 06/26/17 08:00 Blood Pressure 113/55 06/26/17 08:00 O2 Sat by Pulse Oximetry (%) 99 06/25/17 21:00 Constitutional: Yes: Well Nourished, No Distress, Calm Eyes: Yes: Conjunctiva Clear HENT: Yes: Atraumatic, Normocephalic Cardiovascular: Yes: Regular Rate and Rhythm Respiratory: Yes: Regular, On Nasal O2, Poor Air Entry, Wheezes Gastrointestinal: Yes: Normal Bowel Sounds, Soft. No: Tenderness, Vomiting Musculoskeletal: Yes: WNL Extremities: Yes: WNL Neurological: Yes: Alert, Oriented Psychiatric: Yes: Alert, Oriented Labs: CBC, BMP 06/26/17 06:05 06/26/17 06:05 Imaging - Results Chest X-ray: Report Reviewed, Image Reviewed Cat Scan: Report Reviewed, Image Reviewed Assessment/Plan patient coming in with sepsis post chemo including neutropenia and fever currently stable all work up send septic shock no clear source r/o pna or uti or colitis small cell lung ca with mets to the brain Neutropenia patient also being worked up for tb which i highly doubt i have looked at the report of ct scan from [facility] which was done recently and the ct scan now plan zosyn await for for all cx report continue pressors as needed hydration rest as per the icu team monitor for fevers cc time 45 min
[2017-06-26] MEDS ORDERED: PT OWN MED DRAWER 7, Y5N ONE (10:09)
[2017-06-26] MEDS ORDERED: TBO-FILGRASTIM 300 MCG/0.5 ML DISP.SYRINGE SQ SCH (10:30)
[2017-06-26] MEDS: FAMOTIDINE 20 MG/50 ML IVPB 20 MG/50 ML MG IVPB SCH ×2 (11:02→21:34)
--- NOTE | 2017-06-26 12:05 | PN ---
Teaching Attending Note Name of Resident: Lakesha Cooper ATTENDING PHYSICIAN STATEMENT I saw and evaluated the patient. I reviewed the resident's note and discussed the case with the resident. I agree with the resident's findings and plan as documented. SUBJECTIVE: Pt seen and examined in the ICU. Remains on dopamine gtt. Feels better today. Fever curve trending down. OBJECTIVE: Last Vital Signs Temp Pulse Resp BP Pulse Ox 98.5 F 86 25 H 107/49 99 06/26/17 10:00 06/26/17 10:00 06/26/17 10:00 06/26/17 10:00 06/25/17 21:00 Intake & Output 06/23/17 06/24/17 06/25/17 06/26/17 23:59 23:59 23:59 23:59 Intake Total 1790 Balance 1790 Weight 90.356 kg 90.356 kg Gen: mildly tachypneic at rest Heart: RRR Lung: left sided rhonchi Abd: soft, nontender Ext: no edema CBC, BMP 06/26/17 06:05 06/26/17 06:05 Active Medications Acetaminophen (Ofirmev Injection -) 1,000 mg IVPB Q6H PRN PRN Reason: FEVER Last Admin: 06/25/17 19:20 Dose: 1,000 mg Dopamine HCl/Dextrose (Dopamine 400 Mg/D5w -) 400,000 mcg in 250 mls @ 17.01 mls/hr IVPB TITR SHIRLEY; 5 MCG/KG/MIN PRN Reason: Protocol Last Titration: 06/25/17 14:05 Dose: 10 mcg/kg/min, 34.019 mls/hr Famotidine/Sodium Chloride (Pepcid 20 Mg Premixed Ivpb -) 20 mg in 50 mls @ 144 mls/hr IVPB BID SHIRLEY Last Admin: 06/26/17 11:02 Dose: 144 mls/hr Sodium Chloride (Normal Saline -) 1,000 mls @ 50 mls/hr IV ASDIR SHIRLEY Piperacillin Sod/Tazobactam (Sod 3.375 gm/ Dextrose) 50 mls @ 100 mls/hr IVPB Q8H-IV SHIRLEY PRN Reason: Protocol Tbo-Filgrastim (Granix -) 480 mcg SQ DAILY SHIRLEY ASSESSMENT AND PLAN: Extensive Stage Small Cell Lung Ca Neutropenic Septic Shock Pneumonia Pancytopenia Acute Kidney Injury improving +Troponins likely Demand Ischemia - antibiotics per ID - f/u cultures - filgrastim - monitor CBC - transfuse as needed - IVF - titrate pressors to maintain MAP >65 - PO as tolerated - DVT prophylaxis - continue ICU monitoring critical care time spent in reviewing chart, evaluating patient and formulating plan 35 min
[2017-06-26] MEDS: PIPERACILLIN/TAZOB 3.375 GM 3.375 GM in DEXTROSE 5%-WATER - 50 ML IVPB SCH ×2 (12:30→21:34)
[2017-06-26] MEDS ORDERED: PIPERACILLIN/TAZOBACTAM 3.375 GM VIAL IVPB ONE ×2 (12:42→21:15)
[2017-06-26] MEDS ORDERED: DEXTROSE 5%-WATER - 50 ML IVPB ONE ×2 (12:42→21:16)
--- NOTE | 2017-06-26 13:00 | CONSULT ---
Consult Consult Specialty:: Hematology-Oncology Referred by:: Dr Alayna Pichardo Reason for Consultation:: linda sepsis from chemotherapy for lung cancer - History of Present Illness Chief Complaint: weakness ,lightheadedness X several days History of Present Illness: 76 y/o male w Hx extensive stage small cell lung cancer w initial large CARMEN lesion s/p 3rd cycle chemotherapy 1 week ago w etoposide and carboplatin ( no growth factor given ) , recently found to have 2 small brain lesions with minimal edema on Dex. 2mg TID ( RT to brain planned after several more cycles chemoRx ) , who developed weakness , lightheadedness , muddy stools 1-2 days ago . He was found to be hypotensive w fever 102-103 , WBC .4 , plates nl , creat 1.7 . He was started on fluids , dopamine , broad-spectrum ab's ; also started g-csf 480mcg qd ; troponin mildly elevated . Pt w mild SOB at rest, mild cough w minimal sputum , no chest pain or hemoptysis. He denies ZIEGLER's/ visual problems/focal weakness.CT chest showed large CARMEN cavitating mass w likely post-obst. atelectasis/pneumonia, minimal L pleural effusion. He feels much better today.He was given dose of dex. 4 mg. - History Source History Provided By: Patient, Family Member Limitations to Obtaining History: No Limitations - Past Medical History RN CAMP: No: Alzheimer's, CVA, Dementia, Migraine, Multiple Sclerosis, Peripheral Neuropathy, Parkinson's, Seizure, Syncope, TIA, Vertigo, Other Cardio/Vascular: Yes: HTN Pulmonary: Yes: Cancer Gastrointestinal: No: Ascites, Cancer, Constipation, Crohn's Disease, Diverticulitis, Diverticulosis, Esophageal Varices, Gastritis, GERD, GI Bleed, Hemorrhoids, Hiatal Hernia, Inflamatory Bowel Disease, Irritable Bowel Disease, Pancreatitis, Peptic Ulcer Disease, Ulcerative Colitis, Other Hepatobiliary: No: Cirrhosis, Cholelithiasis, Cholecystitis, Choledocholithiasis , Hepatitis A, Hepatitis B, Hepatitis C, Other Renal/: No: Renal Failure, Renal Inusuff, BPH, Cancer, Hematuria, Hemodialysis , Neurogenic Bladder, Renal Calculi, UTI, Other Heme/Onc: Yes: Cancer Infectious Disease: No: AIDS, C-Diff, Herpes Zoster, HIV, MRSA, STD's, Tuberculosis, VREF, Other Psych: No: Addictions, Anxiety, Bipolar, Depression, Panic, Psychosis, Schizophrenia, Other Musculoskeletal: Yes: Chronic low back pain, Osteoarthritis Rheumatology: No: Fibromyalgia, Gout, Lupus, Rheumatoid Arthritis, Sarcoidosis, Vasculitis, Other Endocrine: No: Noe's Disease, Anurag's Disease, Diabetes Insipidus, Diabetes Mellitus, Hyperparathyroidism, Hyperthyroidism, Hypothyroidism, Osteopenia, SIADH, Other - Past Surgical History Past Surgical History: No: None, AAA Repair, AICD, Amputation, Appendectomy, Arthrosocopy, AV Fistula/Graft, Bariatric Surgery, Breast Biopsy, Bypass, CABG, Carotid Endarterectomy, Cataract Removal, Cholecystectomy, Colectomy, Colonoscopy, Colostomy, Craniotomy, , Cystectomy, Hernia Repair, Hysterectomy, Ileal Conduit, Ileosotomy, Joint Replacement, Kidney Transplant, Laminectomy, Liver Transplant, Mastectomy, Nephrectomy, Oopherectomy, Orchiectomy, Permanent Pacemaker, Prostatectomy, Splenectomy, Stent, Thoracotomy , TURP, Tonsillectomy, Tubal Ligation, Upper Endoscopy, Valve Replacement, Vasectomy, Vein Stripping/Ligation - Alcohol/Substance Use Hx Alcohol Use: No - Smoking History Have you smoked in the past 12 months: Yes Home Medications - Allergies Allergies/Adverse Reactions: Allergies Allergy/AdvReac Type Severity Reaction Status Date / Time No Known Drug Allergies Allergy Verified 08/06/13 13:04 - Home Medications Home Medications: Ambulatory Orders Acetaminophen [Tylenol .Regular Strength -] 650 mg PO Q6HPO PRN #0 tablet Atorvastatin Ca [Lipitor] 10 mg PO DAILY #0 tablet 08/16/13 Aspirin [ASA -] 81 mg PO DAILY 06/25/17 Dexamethasone 4 mg PO TID 06/25/17 Gabapentin [Neurontin -] 300 mg PO TID 06/25/17 Telmisartan/Hydrochlorothiazid [Micardis Hct 80-25 mg Tablet] 1 each PO DAILY Review of Systems - Review of Systems Constitutional: reports: Weakness Eyes: reports: No Symptoms HENT: reports: No Symptoms Neck: reports: No Symptoms Respiratory: reports: Cough, SOB on Exertion Gastrointestinal: reports: Diarrhea. denies: No Symptoms, Abdominal Pain, Bloating, Constipation, Dysphagia, Indigestion, Melena, Nausea, Rectal Bleeding , Vomiting, Vomiting Blood, Other Genitourinary: reports: No Symptoms Musculoskeletal: reports: Back Pain Integumentary: reports: No Symptoms Neurological: reports: No Symptoms Endocrine: reports: No Symptoms Hematology/Lymphatic: reports: No Symptoms Psychiatric: reports: No Symptoms Physical Exam Vital Signs: Vital Signs Temperature 98.5 F 06/26/17 10:00 Pulse Rate 97 H 06/26/17 12:00 Respiratory Rate 24 06/26/17 12:00 Blood Pressure 119/57 06/26/17 12:00 O2 Sat by Pulse Oximetry (%) 99 06/25/17 21:00 Constitutional: Yes: Well Nourished, No Distress, Calm Eyes: Yes: WNL, Conjunctiva Clear, EOM Intact HENT: Yes: WNL, Atraumatic, Normocephalic. No: Drooling, Epistaxis, Hoarseness , Nasal Congestion, Pharyngeal Erythema, Rhinnorhea, Thrush, Tonsillar Exudate, Other Neck: Yes: WNL, Supple, Trachea Midline Cardiovascular: Yes: WNL, Regular Rate and Rhythm Respiratory: Yes: Rales, Rhonchi, Wheezes (left upper lung field) Gastrointestinal: Yes: WNL, Normal Bowel Sounds, Soft Breast(s): Yes: WNL Musculoskeletal: Yes: WNL Edema: Yes Edema: LLE: 1+, RLE: 1+ Integumentary: Yes: Other (stasis changes lower ext) Labs: CBC, BMP 06/26/17 06:05 06/26/17 06:05 Problem List - Problems (1) Neutropenia Code(s): D70.9 - NEUTROPENIA, UNSPECIFIED (2) Small cell lung cancer, left upper lobe Code(s): C34.12 - MALIGNANT NEOPLASM OF UPPER LOBE, LEFT BRONCHUS OR LUNG Assessment/Plan Pt clinically w neutropenic septic shock , diarrhea , following 3rd cycle chemotherapy for recently dx'd small cell lung cancer , small presumed brain mets (no RT yet , on small doses dex. ) , possible post obst pneumonia CARMEN , on Pip/Vanco ( vanco just d/c'd ), g-csf daily . To continue g-csf daily till WBC into nl range , then d/c .To check blood cultures , follow ID recommendations . Would recommend small dose of Dex. to continue ; eg Dex. 2mg BID for now . Creat seems to be improving . Check stool for C diff. .Diarrhea may be secondary to chemoRx which would be self-limited . Mild anemia -follow . Port site seems unremarkable ; UA neg. Spoke w Dr Rosy Reed (oncologist). Dr Malik cell [phone] ; office [phone] Ext [phone]
[2017-06-26 13:23] LABS: HEMATOCRIT 21.9 % (35.4-49); HEMOGLOBIN 7.6 GM/dL (11.7-16.9); MCH 33.6 pg (25.7-33.7); MCHC 34.6 g/dl (32.0-35.9); MEAN CELL VOLUME 96.9 fl (80-96); MEAN PLT VOLUME 7.2 fl (7.5-11.1); PLATELET COUNT 76 K/MM3 (134-434); RBC 2.26 M/mm3 (4.00-5.60); RDW 14.8 % (11.9-15.9)
--- NOTE | 2017-06-26 13:23 | HP ---
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 Recently he got 3 doses of chemotherapy. I do not know what exactly the names of the medicines. For the last 2 days he was having diarrhea and had almost collapsed and was brought to the ER by the ambulance. It appeared that he was in shock. After receiving IV fluids, his orientation and blood pressure improved. At present, he is well oriented. PHYSICAL EXAMINATION: Vital Signs: Blood pressure 110/70, pulse 140, respirations 20, temperature 98. HEENT: Unremarkable. Neck: Supple. Lungs: Clear. A few crepitations heard on both sides. Heart: S1, S2 normal. No S3, S4. Abdomen: Soft. Extremities: No edema. DIAGNOSTICS: X-ray of the chest was unremarkable. Labs to be evaluated. IMPRESSION: Cancer of the lung with brain mass, septic shock, back pain. PLAN: Admit to the ICU, possible isolation. Chest x-ray showed some cavity lesions. Because of that, we will rule out TB. I will follow this patient. LINDA BROWN M.D. [id number]
[2017-06-26 13:27] LABS: WHITE BLOOD COUNT 0.2 K/mm3 (4.0-10.0)
[2017-06-26] MEDS: TBO-FILGRASTIM 480 MCG/0.8 ML DISP.SYRIN SQ SCH (14:11)
--- NOTE | 2017-06-26 15:50 | PN ---
Progress Note (short form) - Note Progress Note: Pt decided to change his code status to full code. He reports wanting to rescind his DNR/DNI because he believes that he is acutely sick and that he can bounce back if treated properly. He would not want to impede that and would like to make himself full code. Pt's daughter at bedside and is aware of decision Will rescind in paper chart --Signatures of confirmation are in Will put in order for full code
[2017-06-26] MEDS: DOPAMINE 400 MG/D5W - 400,000 MCG/250 ML INFUS.BAG IVPB SCH (16:00)
[2017-06-26] MEDS: ACETAMINOPHEN 1000 MG/100 ML VIAL (NON FORMULARY) IVPB PRN (17:00)
[2017-06-26] MEDS: DEXAMETHASONE SOD PHOSPHATE 4 MG/1 ML VIAL IVPUSH SCH (21:34)
[2017-06-26] MEDS ORDERED: VANCOMYCIN 1,500 MG in DEXTROSE 5%-WATER - 500 ML IVPB SCH (22:00)
[2017-06-26 22:20] LABS: HEMATOCRIT 24.4 % (35.4-49); HEMOGLOBIN 8.6 GM/dL (11.7-16.9); MCH 33.8 pg (25.7-33.7); MCHC 35.4 g/dl (32.0-35.9); MEAN CELL VOLUME 95.5 fl (80-96); MEAN PLT VOLUME 7.5 fl (7.5-11.1); PLATELET COUNT 70 K/MM3 (134-434); RBC 2.55 M/mm3 (4.00-5.60); RDW 14.9 % (11.9-15.9)
[2017-06-26 22:24] LABS: WHITE BLOOD COUNT 0.3 K/mm3 (4.0-10.0)
[2017-06-27] MEDS: PIPERACILLIN/TAZOB 3.375 GM 3.375 GM in DEXTROSE 5%-WATER - 50 ML IVPB SCH ×3 (01:03→18:38)
[2017-06-27 06:36] LABS: EOS % 1.4 % (0-4.5); HEMATOCRIT 24.3 % (35.4-49); HEMOGLOBIN 8.7 GM/dL (11.7-16.9); LYMPH % 28.9 % (8-40); MCH 33.8 pg (25.7-33.7); MEAN CELL VOLUME 93.9 fl (80-96); MEAN PLT VOLUME 7.8 fl (7.5-11.1); MONO % 12.9 % (3.8-10.2); NEUT % 56.8 % (42.8-82.8); PLATELET COUNT 66 K/MM3 (134-434); RBC 2.58 M/mm3 (4.00-5.60); RDW 15.3 % (11.9-15.9)
[2017-06-27 06:51] LABS: WHITE BLOOD COUNT 0.3 K/mm3 (4.0-10.0)
[2017-06-27 07:16] LABS: ANION GAP 10 (8-16); BLOOD UREA NITROGEN 33 mg/dL (7-18); CHLORIDE 109 mmol/L (98-107); CO2 25 mmol/L (21-32); GLUCOSE,RANDOM 135 mg/dL (74-106); MAGNESIUM 1.7 mg/dL (1.8-2.4); POTASSIUM 3.1 mmol/L (3.5-5.1); SODIUM 144 mmol/L (136-145)
[2017-06-27 07:18] LABS: CREATININE 1.1 mg/dL (0.7-1.3); PHOSPHOROUS 2.7 mg/dL (2.5-4.9)
--- NOTE | 2017-06-27 08:46 | PN ---
Progress Note, Physician Chief Complaint: Feels better History of Present Illness: S/P Chemo for small cell Ca lungs Admitted with sepsis,diarrhea and dehydration On IV antibiotics,received 1unit PRBC WBC still very low 0.4 - Current Medication List Current Medications: Active Medications Acetaminophen (Ofirmev Injection -) 1,000 mg IVPB Q6H PRN PRN Reason: FEVER Last Admin: 06/26/17 17:00 Dose: 1,000 mg Dexamethasone Sodium Phosphate (Decadron Injection -) 2 mg IVPUSH BID [facility]LEY Last Admin: 06/26/17 21:34 Dose: 2 mg Dopamine HCl/Dextrose (Dopamine 400 Mg/D5w -) 400,000 mcg in 250 mls @ 17.01 mls/hr IVPB TITR SHIRLEY; 5 MCG/KG/MIN PRN Reason: Protocol Last Titration: 06/27/17 00:00 Dose: 5 mcg/kg/min, 17.01 mls/hr Famotidine/Sodium Chloride (Pepcid 20 Mg Premixed Ivpb -) 20 mg in 50 mls @ 144 mls/hr IVPB BID [facility]LEY Last Admin: 06/26/17 21:34 Dose: 144 mls/hr Sodium Chloride (Normal Saline -) 1,000 mls @ 50 mls/hr IV ASDIR [facility] Last Admin: 06/26/17 09:00 Dose: 50 mls/hr Piperacillin Sod/Tazobactam (Sod 3.375 gm/ Dextrose) 50 mls @ 100 mls/hr IVPB Q8H-IV SH[facility]LEY PRN Reason: Protocol Last Admin: 06/27/17 01:03 Dose: 100 mls/hr Tbo-Filgrastim (Granix -) 480 mcg SQ DAILY [facility] Last Admin: 06/26/17 14:11 Dose: 480 mcg - Objective Vital Signs: Vital Signs Temperature 98.9 F 06/27/17 06:00 Pulse Rate 71 06/27/17 06:00 Respiratory Rate 30 H 06/27/17 06:00 Blood Pressure 118/50 06/27/17 06:00 O2 Sat by Pulse Oximetry (%) 99 06/26/17 21:00 Constitutional: Yes: No Distress Eyes: Yes: WNL HENT: Yes: WNL Neck: Yes: WNL Cardiovascular: Yes: WNL Respiratory: Yes: WNL Gastrointestinal: Yes: Normal Bowel Sounds ...Rectal Exam: Yes: Deferred Genitourinary: Yes: WNL Breast(s): Yes: WNL Musculoskeletal: Yes: Muscle Weakness Neurological: Yes: Alert Labs: CBC, BMP 06/27/17 06:10 06/27/17 06:10 INR, PTT INR 1.42 (0.82-1.09) H 06/25/17 11:04 Assessment/Plan Case discussed with residents Kcl supplements ordered
[2017-06-27] MEDS ORDERED: POTASSIUM CHLORIDE ORAL LIQUID 20 MEQ/15 ML PO ONE ×2 (09:00→10:00)
[2017-06-27] MEDS ORDERED: DEXTROSE 5%-WATER - 50 ML IVPB ONE ×2 (09:42→18:32)
[2017-06-27] MEDS ORDERED: PIPERACILLIN/TAZOBACTAM 3.375 GM VIAL IVPB ONE ×2 (09:42→18:32)
[2017-06-27] MEDS ORDERED: PT OWN MED DRAWER 7, Y5N ONE (09:52)
[2017-06-27] MEDS: FAMOTIDINE 20 MG/50 ML IVPB 20 MG/50 ML MG IVPB SCH ×2 (10:41→21:45)
[2017-06-27] MEDS: DEXAMETHASONE SOD PHOSPHATE 4 MG/1 ML VIAL IVPUSH SCH ×2 (10:42→21:45)
[2017-06-27] MEDS: SODIUM CHLORIDE 1,000 ML IV SCH ×2 (10:42→13:00)
[2017-06-27] MEDS ORDERED: SODIUM CHLORIDE 250 ML IV STA (11:45)
--- NOTE | 2017-06-27 12:23 | PN ---
Teaching Attending Note Name of Resident: Corey Cordova ATTENDING PHYSICIAN STATEMENT I saw and evaluated the patient. I reviewed the resident's note and discussed the case with the resident. I agree with the resident's findings and plan as documented. SUBJECTIVE: Patient seen and examined in the ICU. Awake and alert. Remains on 4 mcq Dopamine for hemodynamic support. Denies CP or SOB. Some congested cough. No hemoptysis. CXR: improving, well defined left cavitary lesion Intake & Output 06/24/17 06/25/17 06/26/17 06/27/17 23:59 23:59 23:59 23:59 Intake Total 2530 983.2 Output Total 350 300 Balance 2180 683.2 Weight 199 lb 3.2 oz 199 lb 3.2 oz 201 lb 1.6 oz Last Vital Signs Temp Pulse Resp BP Pulse Ox 98.6 F 83 30 H 100/52 99 06/27/17 10:00 06/27/17 10:00 06/27/17 10:00 06/27/17 10:00 06/26/17 21:00 Active Medications Acetaminophen (Ofirmev Injection -) 1,000 mg IVPB Q6H PRN PRN Reason: FEVER Last Admin: 06/26/17 17:00 Dose: 1,000 mg Dexamethasone Sodium Phosphate (Decadron Injection -) 2 mg IVPUSH BID SH[facility] Last Admin: 06/27/17 10:42 Dose: 2 mg Dopamine HCl/Dextrose (Dopamine 400 Mg/D5w -) 400,000 mcg in 250 mls @ 17.01 mls/hr IVPB TITR SHIRLEY; 5 MCG/KG/MIN PRN Reason: Protocol Last Titration: 06/27/17 00:00 Dose: 5 mcg/kg/min, 17.01 mls/hr Famotidine/Sodium Chloride (Pepcid 20 Mg Premixed Ivpb -) 20 mg in 50 mls @ 144 mls/hr IVPB BID [facility] Last Admin: 06/27/17 10:41 Dose: 144 mls/hr Piperacillin Sod/Tazobactam (Sod 3.375 gm/ Dextrose) 50 mls @ 100 mls/hr IVPB Q8H-IV SH[facility] PRN Reason: Protocol Last Admin: 06/27/17 10:41 Dose: 100 mls/hr Sodium Chloride (Normal Saline -) 250 mls @ 250 mls/hr IV ASDIR STA Stop: 06/27/17 12:44 Sodium Chloride (Normal Saline -) 1,000 mls @ 100 mls/hr IV ASDIR [facility] Tbo-Filgrastim (Granix -) 480 mcg SQ DAILY [facility] Last Admin: 06/26/17 14:11 Dose: 480 mcg GENERAL: Awake and alert, mildly tachypneic at rest HEENT: Normocephalic, atraumatic. (+) Dry mucous membranes. NECK: Supple. Full ROM. No JVD. CARDIOVASCULAR: Tachycardia PULMONARY: Mildy tachypneic at rest, scattered rhonchi ABDOMINAL: Soft. Non-tender. Non-distended. No rebound or guarding. GENITOURINARY: No CVA tenderness bilaterally. MUSCULOSKELETAL: Normal range of motion at all joints. No bony deformities or tenderness. EXTREMITIES: No cyanosis. No clubbing. No edema. No calf tenderness. SKIN: Warm and dry. Normal capillary refill. No rashes. No jaundice. NEUROLOGICAL: Non-focal PSYCHIATRIC: Cooperative. Laboratory Results - last 24 hr 06/26/17 06/26/17 06/26/17 12:40 12:40 17:01 WBC 0.2 L* D RBC 2.26 L Hgb 7.6 L Hct 21.9 L MCV 96.9 H MCH 33.6 MCHC 34.6 RDW 14.8 Plt Count 76 L D MPV 7.2 L Neutrophils % Lymphocytes % Monocytes % Eosinophils % Basophils % Sodium Potassium Chloride Carbon Dioxide Anion Gap BUN Creatinine POC Glucometer [phone] Random Glucose Calcium Phosphorus Magnesium Ur Random Sodium Ur Random Potassium Ur Random Chloride Blood Type O POSITIVE Antibody Screen Negative Crossmatch See Detail 06/26/17 06/27/17 06/27/17 22:05 05:28 06:10 WBC 0.3 L* D RBC 2.55 L Hgb 8.6 L D Hct 24.4 L MCV 95.5 MCH 33.8 H MCHC 35.4 RDW 14.9 Plt Count 70 L MPV 7.5 Neutrophils % Lymphocytes % Monocytes % Eosinophils % Basophils % Sodium 144 Potassium 3.1 L Chloride 109 H Carbon Dioxide 25 Anion Gap 10 BUN 33 H D Creatinine 1.1 POC Glucometer Random Glucose 135 H D Calcium 8.0 L Phosphorus 2.7 D Magnesium 1.7 L D Ur Random Sodium 84 Ur Random Potassium 28.8 Ur Random Chloride 98 Blood Type Antibody Screen Crossmatch 06/27/17 06:10 WBC 0.3 L* RBC 2.58 L Hgb 8.7 L Hct 24.3 L MCV 93.9 MCH 33.8 H MCHC 36.0 H RDW 15.3 Plt Count 66 L MPV 7.8 Neutrophils % 56.8 D Lymphocytes % 28.9 D Monocytes % 12.9 H Eosinophils % 1.4 Basophils % 0.0 Sodium Potassium Chloride Carbon Dioxide Anion Gap BUN Creatinine POC Glucometer Random Glucose Calcium Phosphorus Magnesium Ur Random Sodium Ur Random Potassium Ur Random Chloride Blood Type Antibody Screen Crossmatch IMP: Septic Shock Suspected Post-obstructive PNA Low clinical suspicion of P TB 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
--- NOTE | 2017-06-27 12:44 | PN ---
Progress Note, Physician History of Present Illness: still neutropenic feels very tired no other issues still needing nasal o2 says had some soft bm - Current Medication List Current Medications: Active Medications Acetaminophen (Ofirmev Injection -) 1,000 mg IVPB Q6H PRN PRN Reason: FEVER Last Admin: 06/26/17 17:00 Dose: 1,000 mg Dexamethasone Sodium Phosphate (Decadron Injection -) 2 mg IVPUSH BID [facility] Last Admin: 06/27/17 10:42 Dose: 2 mg Dopamine HCl/Dextrose (Dopamine 400 Mg/D5w -) 400,000 mcg in 250 mls @ 17.01 mls/hr IVPB TITR SHIRLEY; 5 MCG/KG/MIN PRN Reason: Protocol Last Titration: 06/27/17 00:00 Dose: 5 mcg/kg/min, 17.01 mls/hr Famotidine/Sodium Chloride (Pepcid 20 Mg Premixed Ivpb -) 20 mg in 50 mls @ 144 mls/hr IVPB BID [facility] Last Admin: 06/27/17 10:41 Dose: 144 mls/hr Piperacillin Sod/Tazobactam (Sod 3.375 gm/ Dextrose) 50 mls @ 100 mls/hr IVPB Q8H-IV [facility] PRN Reason: Protocol Last Admin: 06/27/17 10:41 Dose: 100 mls/hr Sodium Chloride (Normal Saline -) 1,000 mls @ 100 mls/hr IV ASDIR [facility] Tbo-Filgrastim (Granix -) 480 mcg SQ DAILY [facility] Last Admin: 06/26/17 14:11 Dose: 480 mcg - Objective Vital Signs: Vital Signs Temperature 98.6 F 06/27/17 10:00 Pulse Rate 82 06/27/17 12:00 Respiratory Rate 20 06/27/17 12:00 Blood Pressure 127/69 06/27/17 12:00 O2 Sat by Pulse Oximetry (%) 99 06/26/17 21:00 Constitutional: Yes: No Distress, Calm Neck: Yes: Supple Cardiovascular: Yes: Regular Rate and Rhythm Respiratory: Yes: Regular, On Nasal O2, Poor Air Entry (rt side), Rhonchi Gastrointestinal: Yes: Normal Bowel Sounds, Soft Musculoskeletal: Yes: WNL Extremities: Yes: WNL Neurological: Yes: Alert, Oriented Psychiatric: Yes: Alert, Oriented Labs: CBC, BMP 06/27/17 06:10 06/27/17 06:10 INR, PTT INR 1.42 (0.82-1.09) H 06/25/17 11:04 Assessment/Plan Septic Shock Suspected Post-obstructive PNA 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
[2017-06-27] MEDS: TBO-FILGRASTIM 480 MCG/0.8 ML DISP.SYRIN SQ SCH (13:00)
--- NOTE | 2017-06-27 13:57 | PN ---
Physical Exam: SUBJECTIVE: Patient seen and examined Pt spiked temp of 100.6 yesterday at 5pm. No acute events overnight. Pt denies headache, chest pain, SOB, cough, abdominal pain, n/v, and dysuria. OBJECTIVE: Vital Signs Period Temp Pulse Resp BP Sys/Cervantes Pulse Ox Last 24 Hr 96 F-100.6 F 71-99 15-30 100-154/15-76 99 GENERAL: elderly male, lying in bed, in NAD, AAOx3 HEENT: NC, AT, breathing on NC LUNGS: scattered wheezes, no rhonchi or rales HEART: Regular rate and rhythm, S1, S2 without murmur, rub or gallop. ABDOMEN: Soft, nontender, nondistended, normoactive bowel sounds EXTREMITIES: 1+ edema b/l in LE NEUROLOGICAL: Cranial nerves II through XII grossly intact. Normal speech, gait not observed. Laboratory Results - last 24 hr 06/26/17 06/26/17 06/26/17 12:40 12:40 17:01 WBC 0.2 L* D RBC 2.26 L Hgb 7.6 L Hct 21.9 L MCV 96.9 H MCH 33.6 MCHC 34.6 RDW 14.8 Plt Count 76 L D MPV 7.2 L Neutrophils % Lymphocytes % Monocytes % Eosinophils % Basophils % Sodium Potassium Chloride Carbon Dioxide Anion Gap BUN Creatinine POC Glucometer [phone] Random Glucose Calcium Phosphorus Magnesium Ur Random Sodium Ur Random Potassium Ur Random Chloride Blood Type O POSITIVE Antibody Screen Negative Crossmatch See Detail 06/26/17 06/27/17 06/27/17 22:05 05:28 06:10 WBC 0.3 L* D RBC 2.55 L Hgb 8.6 L D Hct 24.4 L MCV 95.5 MCH 33.8 H MCHC 35.4 RDW 14.9 Plt Count 70 L MPV 7.5 Neutrophils % Lymphocytes % Monocytes % Eosinophils % Basophils % Sodium 144 Potassium 3.1 L Chloride 109 H Carbon Dioxide 25 Anion Gap 10 BUN 33 H D Creatinine 1.1 POC Glucometer Random Glucose 135 H D Calcium 8.0 L Phosphorus 2.7 D Magnesium 1.7 L D Ur Random Sodium 84 Ur Random Potassium 28.8 Ur Random Chloride 98 Blood Type Antibody Screen Crossmatch 06/27/17 06:10 WBC 0.3 L* RBC 2.58 L Hgb 8.7 L Hct 24.3 L MCV 93.9 MCH 33.8 H MCHC 36.0 H RDW 15.3 Plt Count 66 L MPV 7.8 Neutrophils % 56.8 D Lymphocytes % 28.9 D Monocytes % 12.9 H Eosinophils % 1.4 Basophils % 0.0 Sodium Potassium Chloride Carbon Dioxide Anion Gap BUN Creatinine POC Glucometer Random Glucose Calcium Phosphorus Magnesium Ur Random Sodium Ur Random Potassium Ur Random Chloride Blood Type Antibody Screen Crossmatch Active Medications Generic Name Dose Route Start Last Admin Trade Name Freq PRN Reason Stop Dose Admin Acetaminophen 1,000 mg 06/25/17 16:10 06/26/17 17:00 Ofirmev Injection - IVPB 1,000 mg Q6H PRN Administration FEVER Dexamethasone Sodium Phosphate 2 mg 06/26/17 22:00 06/27/17 10:42 Decadron Injection - IVPUSH 2 mg BID SHIRLEY Administration Dopamine HCl/Dextrose 400,000 mcg in 250 mls @ 17.01 mls/hr 06/25/17 13:00 00:00 Dopamine 400 Mg/D5w - IVPB 5 mcg/kg/min TITR SHIRLEY 17.01 mls/hr Protocol Titration 5 MCG/KG/MIN Famotidine/Sodium Chloride 20 mg in 50 mls @ 144 mls/hr 06/25/17 22:30 10:41 Pepcid 20 Mg Premixed Ivpb - IVPB 144 mls/hr BID SHIRLEY Administration Piperacillin Sod/Tazobactam 50 mls @ 100 mls/hr 06/26/17 11:30 06/27/17 10:41 Sod 3.375 gm/ Dextrose IVPB 100 mls/hr Q8H-IV SHIRLEY Administration Protocol Sodium Chloride 1,000 mls @ 100 mls/hr 06/27/17 12:45 Normal Saline - IV ASDIR SHIRLEY Tbo-Filgrastim 480 mcg 06/26/17 11:18 06/26/17 14:11 Granix - SQ 480 mcg DAILY SHIRLEY Administration ASSESSMENT/PLAN: 76M w/ hx of small cell lung cancer with brain mets (diagnosed 02/2017, on third cycle of chemo which ended 06/19/17, last chemotherapy dose 06/19/17), HTN, HLD, OA, spinal stenosis, who presented with weakness and lightheadedness, found to have septic shock 2/2 PNA, currently on dopamine and zosyn. ID # neutropenic septic shock - likely 2/2 lung source - neutropenia: continue granix daily - fever last night at 5pm, continue to monitor - IVF: increased from 50cc/hr to 100cc/hr and given bolus of 250 as pt appears volume down - on pressors: Dopamine, wean as tolerated - maintain MAP > 65 - O2 prn - continue Zosyn - ID (Dr. Coker), recs appreciated - maintain droplet precaution with N95 masks 2/2 cavitary lesion in lung - f/u urine, sputum, and c.diff cultures - Bcx: negative x 24 hrs Oncology # Small Cell Lung Ca with mets to brain - being treated at [place] by Dr. Rosy Galicia - just completed third cycle of chemotherapy (last dose 06/19/17) - has home med of Dexamethasone for brain mets. Continue dexa 2mg IV BID - Oncology (Dr. Issa) recs appreciated Hematology # acute anemia - Hgb stable at 8.7 - transfuse for hgb < 7.0 - monitor for overt s/s of bleeding Nephro # ROSANGELA - resolved - Cr back to baseline CV # troponinemia - likely 2/2 demand ischemia 2/2 septic shock - peaked at 0.17, now trending down - no need to trend further # HTN - hold home meds as pt is on pressors FEN/ppx - Fluids: NS @ 100 ml/hr - Electrolytes: hypomagnesemia and hypokalemia repleted - Nutrition: soft diet - DVT ppx with tequila SCDs (no chemoprophylaxis 2/2 thrombocytopenia) - GI ppx with Pepcid Dispo - Pt is full code Case discussed with attending, Dr. Varma. -Corey Cordova MD PGY1 ICU Team Visit type - Emergency Visit Emergency Visit: Yes ED Registration Date: 06/25/17 Care time: The patient presented to the Emergency Department on the above date and was hospitalized for further evaluation of their emergent condition. - New Patient This patient is new to me today: No - Critical Care Critical Care patient: Yes Total Critical Care Time (in minutes): 38 Critical Care Statement: The care of this patient involved high complexity decision making to prevent further life threatening deterioration of the patient 's condition and/or to evaluate & treat vital organ system(s) failure or risk of failure.
[2017-06-27] MEDS ORDERED: MAGNESIUM SULF 50% (8.12 MEQ/2 ML-1 GM VIAL) IVPB ONE (13:58)
[2017-06-27] MEDS: DOPAMINE 400 MG/D5W - 400,000 MCG/250 ML INFUS.BAG IVPB SCH (14:00)
[2017-06-27] MEDS ORDERED: MAGNESIUM 1GM/D5W - 1 GM/100 ML IVPB IVPB ONE (14:45)
[2017-06-28] MEDS ORDERED: PIPERACILLIN/TAZOBACTAM 3.375 GM VIAL IVPB ONE ×3 (00:46→16:03)
[2017-06-28] MEDS ORDERED: DEXTROSE 5%-WATER - 50 ML IVPB ONE ×3 (00:46→16:04)
[2017-06-28] MEDS: PIPERACILLIN/TAZOB 3.375 GM 3.375 GM in DEXTROSE 5%-WATER - 50 ML IVPB SCH ×3 (01:25→18:54)
[2017-06-28 05:58] LABS: HEMATOCRIT 22.9 % (35.4-49); HEMOGLOBIN 7.9 GM/dL (11.7-16.9); MCH 32.7 pg (25.7-33.7); MCHC 34.4 g/dl (32.0-35.9); MEAN CELL VOLUME 95.2 fl (80-96); PLATELET COUNT 53 K/MM3 (134-434); RBC 2.41 M/mm3 (4.00-5.60); RDW 15.2 % (11.9-15.9)
[2017-06-28 06:17] LABS: WHITE BLOOD COUNT 0.3 K/mm3 (4.0-10.0)
[2017-06-28 06:24] LABS: ALBUMIN 1.4 g/dl (3.4-5.0); ANION GAP 8 (8-16); BILIRUBIN,TOTAL 0.2 mg/dL (0.2-1.0); BLOOD UREA NITROGEN 33 mg/dL (7-18); CALCIUM 7.8 mg/dL (8.5-10.1); CHLORIDE 110 mmol/L (98-107); CO2 27 mmol/L (21-32); CREATININE 1.1 mg/dL (0.7-1.3); GLUCOSE,RANDOM 100 mg/dL (74-106); MAGNESIUM 1.3 mg/dL (1.8-2.4); PHOSPHOROUS 1.7 mg/dL (2.5-4.9); POTASSIUM 3.5 mmol/L (3.5-5.1); SGOT/AST 29 U/L (15-37); SGPT/ALT 37 U/L (12-78); SODIUM 145 mmol/L (136-145); TOT PROT 4.3 g/dl (6.4-8.2)
[2017-06-28 06:25] LABS: ALK PHOS 69 U/L (45-117)
--- NOTE | 2017-06-28 09:36 | PN ---
Progress Note, Physician Chief Complaint: Feels better History of Present Illness: Dr Cokers ID consult appreciated WBC count didn,t come up,still o.3 - Current Medication List Current Medications: Active Medications Acetaminophen (Ofirmev Injection -) 1,000 mg IVPB Q6H PRN PRN Reason: FEVER Last Admin: 06/26/17 17:00 Dose: 1,000 mg Dexamethasone Sodium Phosphate (Decadron Injection -) 2 mg IVPUSH BID SHIRLEY Last Admin: 06/27/17 21:45 Dose: 2 mg Famotidine/Sodium Chloride (Pepcid 20 Mg Premixed Ivpb -) 20 mg in 50 mls @ 144 mls/hr IVPB BID SH[facility]LEY Last Admin: 06/27/17 21:45 Dose: 144 mls/hr Piperacillin Sod/Tazobactam (Sod 3.375 gm/ Dextrose) 50 mls @ 100 mls/hr IVPB Q8H-IV SHIRLEY PRN Reason: Protocol Last Admin: 06/28/17 01:25 Dose: 100 mls/hr Sodium Chloride (Normal Saline -) 1,000 mls @ 100 mls/hr IV ASDIR SH[facility] Last Admin: 06/27/17 13:00 Dose: 100 mls/hr Tbo-Filgrastim (Granix -) 480 mcg SQ DAILY [facility] Last Admin: 06/27/17 13:00 Dose: 480 mcg - Objective Vital Signs: Vital Signs Temperature 97.2 F L 06/28/17 06:00 Pulse Rate 90 06/28/17 06:00 Respiratory Rate 20 06/28/17 06:00 Blood Pressure 130/74 06/28/17 06:00 O2 Sat by Pulse Oximetry (%) 99 06/27/17 23:53 Constitutional: Yes: No Distress Eyes: Yes: WNL HENT: Yes: Nasal Congestion Neck: Yes: WNL Cardiovascular: Yes: WNL Respiratory: Yes: WNL Gastrointestinal: Yes: WNL Genitourinary: Yes: WNL Breast(s): Yes: WNL Musculoskeletal: Yes: Muscle Weakness Edema: No Neurological: Yes: Alert Labs: CBC, BMP 06/28/17 05:40 06/28/17 05:40 INR, PTT INR 1.42 (0.82-1.09) H 06/25/17 11:04
[2017-06-28] MEDS: DEXAMETHASONE SOD PHOSPHATE 4 MG/1 ML VIAL IVPUSH SCH (11:06)
[2017-06-28] MEDS: FAMOTIDINE 20 MG/50 ML IVPB 20 MG/50 ML MG IVPB SCH ×2 (11:08→21:50)
[2017-06-28] MEDS: SODIUM CHLORIDE 1,000 ML IV SCH (11:08)
[2017-06-28] MEDS: TBO-FILGRASTIM 480 MCG/0.8 ML DISP.SYRIN SQ SCH (11:26)
[2017-06-28 11:57] LABS: PLATELET ESTIMATE DECREASED
--- NOTE | 2017-06-28 12:43 | PN ---
Teaching Attending Note Name of Resident: Lakesha Cooper ATTENDING PHYSICIAN STATEMENT I saw and evaluated the patient. I reviewed the resident's note and discussed the case with the resident. I agree with the resident's findings and plan as documented. SUBJECTIVE: Patient seen and examined in the ICU. Awake and alert. Currently off Dopamine for hemodynamic support. Denies CP or SOB. Still with some congested cough that is minimally blood tinged. CXR: No gross change allowing for difference in technique Intake & Output 06/25/17 06/26/17 06/27/17 06/28/17 23:59 23:59 23:59 23:59 Intake Total 2530 1853.2 1630 Output Total 350 900 600 Balance 2180 953.2 1030 Weight 199 lb 3.2 oz 199 lb 3.2 oz 201 lb 1.6 oz 203 lb Last Vital Signs Temp Pulse Resp BP Pulse Ox 97.6 F 84 20 136/65 99 06/28/17 10:00 06/28/17 10:00 06/28/17 10:00 06/28/17 10:00 06/27/17 23:53 Active Medications Acetaminophen (Ofirmev Injection -) 1,000 mg IVPB Q6H PRN PRN Reason: FEVER Last Admin: 06/26/17 17:00 Dose: 1,000 mg Dexamethasone Sodium Phosphate (Decadron Injection -) 2 mg IVPUSH BID [facility] Last Admin: 06/28/17 11:06 Dose: 2 mg Famotidine/Sodium Chloride (Pepcid 20 Mg Premixed Ivpb -) 20 mg in 50 mls @ 144 mls/hr IVPB BID [facility] Last Admin: 06/28/17 11:08 Dose: 144 mls/hr Piperacillin Sod/Tazobactam (Sod 3.375 gm/ Dextrose) 50 mls @ 100 mls/hr IVPB Q8H-IV SHIRLEY PRN Reason: Protocol Last Admin: 06/28/17 11:08 Dose: 100 mls/hr Sodium Chloride (Normal Saline -) 1,000 mls @ 100 mls/hr IV ASDIR [facility] Last Admin: 06/28/17 11:08 Dose: 100 mls/hr Tbo-Filgrastim (Granix -) 480 mcg SQ DAILY [facility] Last Admin: 06/28/17 11:26 Dose: 480 mcg GENERAL: Awake and alert, NAD HEENT: Normocephalic, atraumatic. (+) Dry mucous membranes. NECK: Supple. Full ROM. No JVD. CARDIOVASCULAR: Tachycardia PULMONARY: Mildy tachypneic at rest, scattered rhonchi ABDOMINAL: Soft. Non-tender. Non-distended. No rebound or guarding. GENITOURINARY: No CVA tenderness bilaterally. MUSCULOSKELETAL: Normal range of motion at all joints. No bony deformities or tenderness. EXTREMITIES: No cyanosis. No clubbing. No edema. No calf tenderness. SKIN: Warm and dry. Normal capillary refill. No rashes. No jaundice. NEUROLOGICAL: Non-focal PSYCHIATRIC: Cooperative. Laboratory Results - last 24 hr 06/27/17 06/27/17 06/28/17 22:00 22:00 05:40 WBC 0.3 L* RBC 2.41 L Hgb 7.9 L Hct 22.9 L MCV 95.2 MCH 32.7 MCHC 34.4 RDW 15.2 Plt Count 53 L MPV 8.0 Neutrophils % No Result Required. Neutrophils % (Manual) 34.4 L D Band Neutrophils % 1.6 Lymphocytes % No Result Required. Lymphocytes % (Manual) 32.8 D Monocytes % (Manual) 20 H* D Eosinophils % (Manual) 0.0 Basophils % (Manual) 0.0 Myelocytes % (Man) 3 H Promyelocytes % (Man) 2 Blast Cells % (Manual) 0 Nucleated RBC % 1 H Metamyelocytes 6 H Platelet Estimate Decreased Sodium Potassium 3.6 Chloride Carbon Dioxide Anion Gap BUN Creatinine Creat Clearance w eGFR Random Glucose Calcium Phosphorus Magnesium 1.5 L Total Bilirubin AST ALT Alkaline Phosphatase Total Protein Albumin 06/28/17 05:40 WBC RBC Hgb Hct MCV MCH MCHC RDW Plt Count MPV Neutrophils % Neutrophils % (Manual) Band Neutrophils % Lymphocytes % Lymphocytes % (Manual) Monocytes % (Manual) Eosinophils % (Manual) Basophils % (Manual) Myelocytes % (Man) Promyelocytes % (Man) Blast Cells % (Manual) Nucleated RBC % Metamyelocytes Platelet Estimate Sodium 145 Potassium 3.5 Chloride 110 H Carbon Dioxide 27 Anion Gap 8 BUN 33 H Creatinine 1.1 Creat Clearance w eGFR > 60 Random Glucose 100 D Calcium 7.8 L Phosphorus 1.7 L D Magnesium 1.3 L Total Bilirubin 0.2 D AST 29 D ALT 37 D Alkaline Phosphatase 69 Total Protein 4.3 L Albumin 1.4 L D IMP: Septic Shock Suspected Post-obstructive PNA Low clinical suspicion of P TB 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
[2017-06-28] MEDS ORDERED: MAGNESIUM OXIDE 400 MG TABLET (FP) PO ONE (14:41)
[2017-06-28] MEDS ORDERED: DEXAMETHASONE SOD PHOSPHATE 4 MG/1 ML VIAL IVPUSH SCH (15:00)
--- NOTE | 2017-06-28 15:03 | PN ---
Physical Exam: SUBJECTIVE: Patient seen and examined in the ICU. Pt reports continued cough productive of white sputum. Pt denies headache, lightheadedness, dizziness, fever, chills, chest pain, sob, abdominal pain. Pt off pressors. OBJECTIVE: Vital Signs Period Temp Pulse Resp BP Sys/Cervantes Pulse Ox Last 24 Hr 97.2 F-98.4 F 79-92 18-22 116-140/50-77 99-99 GENERAL: The patient is awake, alert, and fully oriented, in no acute distress. LUNGS: Scattered rhonchi appreciated. No crackles or accessory muscle use. HEART: Regular rate and rhythm, +S1/S2. ABDOMEN: Soft, nontender, nondistended, normoactive bowel sounds, no guarding. EXTREMITIES: Pedal edema noted and 1+ edema to Left LE. Tequila capillary refill appreciated. PSYCH: Normal mood, normal affect. Laboratory Results - last 24 hr 06/27/17 06/27/17 06/28/17 22:00 22:00 05:40 WBC 0.3 L* RBC 2.41 L Hgb 7.9 L Hct 22.9 L MCV 95.2 MCH 32.7 MCHC 34.4 RDW 15.2 Plt Count 53 L MPV 8.0 Neutrophils % No Result Required. Neutrophils % (Manual) 34.4 L D Band Neutrophils % 1.6 Lymphocytes % No Result Required. Lymphocytes % (Manual) 32.8 D Monocytes % (Manual) 20 H* D Eosinophils % (Manual) 0.0 Basophils % (Manual) 0.0 Myelocytes % (Man) 3 H Promyelocytes % (Man) 2 Blast Cells % (Manual) 0 Nucleated RBC % 1 H Metamyelocytes 6 H Platelet Estimate Decreased Sodium Potassium 3.6 Chloride Carbon Dioxide Anion Gap BUN Creatinine Creat Clearance w eGFR Random Glucose Calcium Phosphorus Magnesium 1.5 L Total Bilirubin AST ALT Alkaline Phosphatase Total Protein Albumin 06/28/17 05:40 WBC RBC Hgb Hct MCV MCH MCHC RDW Plt Count MPV Neutrophils % Neutrophils % (Manual) Band Neutrophils % Lymphocytes % Lymphocytes % (Manual) Monocytes % (Manual) Eosinophils % (Manual) Basophils % (Manual) Myelocytes % (Man) Promyelocytes % (Man) Blast Cells % (Manual) Nucleated RBC % Metamyelocytes Platelet Estimate Sodium 145 Potassium 3.5 Chloride 110 H Carbon Dioxide 27 Anion Gap 8 BUN 33 H Creatinine 1.1 Creat Clearance w eGFR > 60 Random Glucose 100 D Calcium 7.8 L Phosphorus 1.7 L D Magnesium 1.3 L Total Bilirubin 0.2 D AST 29 D ALT 37 D Alkaline Phosphatase 69 Total Protein 4.3 L Albumin 1.4 L D Active Medications Generic Name Dose Route Start Last Admin Trade Name Freq PRN Reason Stop Dose Admin Acetaminophen 1,000 mg 06/25/17 16:10 06/26/17 17:00 Ofirmev Injection - IVPB 1,000 mg Q6H PRN Administration FEVER Dexamethasone Sodium Phosphate 2 mg 06/28/17 15:00 Decadron Injection - IVPUSH DAILY SHIRLEY Dexamethasone Sodium Phosphate 2 mg 06/29/17 10:00 Decadron Injection - IVPUSH DAILY [facility]LEY Famotidine/Sodium Chloride 20 mg in 50 mls @ 144 mls/hr 06/25/17 22:30 11:08 Pepcid 20 Mg Premixed Ivpb - IVPB 144 mls/hr BID SHIRLEY Administration Piperacillin Sod/Tazobactam 50 mls @ 100 mls/hr 06/26/17 11:30 06/28/17 11:08 Sod 3.375 gm/ Dextrose IVPB 100 mls/hr Q8H-IV SHIRLEY Administration Protocol Potassium Phos/Sodium Phos 1 packet 06/28/17 14:45 Phos-Nak Packet - PO 06/28/17 22:01 BID SHIRLEY Tbo-Filgrastim 480 mcg 06/26/17 11:18 06/28/17 11:26 Granix - SQ 480 mcg DAILY SHIRLEY Administration ASSESSMENT/PLAN: 76M with PMH of 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 # neutropenic septic shock - likely 2/2 post-obstructive pna, low clinical suspicion for TB - neutropenia -> continue Granix daily - afebrile since last evening -> Ofirmev prn for fever - off pressors: Dopamine D/Alvaro - O2 prn - Day 3 of IV Zosyn - blood culture (-) x 72 hrs - urine culture (-) - acid fast bacilli cultures (-) # Small Cell Lung Ca with mets to brain - being treated at [facility] by Dr. Rosy Galicia - just completed third cycle of chemotherapy (last dose 06/19/17) - Dexamethasone BID - Oncology on board # acute anemia - transfuse for hgb < 7.0 - monitor for overt s/s of bleeding - f/u CBC # ROSANGELA - resolved - Cr back to baseline 0.9-1.0 # troponinemia - likely 2/2 demand ischemia related to septic shock - peaked at 0.17, now trending down - no need to trend further # htn - hold home meds for now # FEN - Fluids: po - Electrolytes: hypomagnesemia and hypophosphatemia repleted, continue to monitor - Nutrition: regular diet # Prophylaxis - DVT ppx with tequila SCDs (no chemoprophylaxis 2/2 thrombocytopenia) - GI ppx with Pepcid # dispo - Pt rescinded DNR/DNI for now Visit type - Emergency Visit Emergency Visit: Yes ED Registration Date: 06/25/17 Care time: The patient presented to the Emergency Department on the above date and was hospitalized for further evaluation of their emergent condition. - New Patient This patient is new to me today: No - Critical Care Critical Care patient: Yes Total Critical Care Time (in minutes): 40 Critical Care Statement: The care of this patient involved high complexity decision making to prevent further life threatening deterioration of the patient 's condition and/or to evaluate & treat vital organ system(s) failure or risk of failure.
--- NOTE | 2017-06-28 15:39 | PN ---
Progress Note, Physician History of Present Illness: stable afebrile still very neutropenic says he is very tired dry cough - Current Medication List Current Medications: Active Medications Acetaminophen (Ofirmev Injection -) 1,000 mg IVPB Q6H PRN PRN Reason: FEVER Last Admin: 06/26/17 17:00 Dose: 1,000 mg Dexamethasone Sodium Phosphate (Decadron Injection -) 2 mg IVPUSH DAILY [facility] Dexamethasone Sodium Phosphate (Decadron Injection -) 2 mg IVPUSH DAILY COUNT INCLUDES THE [facility] Famotidine/Sodium Chloride (Pepcid 20 Mg Premixed Ivpb -) 20 mg in 50 mls @ 144 mls/hr IVPB BID SHIRLEY Last Admin: 06/28/17 11:08 Dose: 144 mls/hr Piperacillin Sod/Tazobactam (Sod 3.375 gm/ Dextrose) 50 mls @ 100 mls/hr IVPB Q8H-IV SHIRLEY PRN Reason: Protocol Last Admin: 06/28/17 11:08 Dose: 100 mls/hr Potassium Phos/Sodium Phos (Phos-Nak Packet -) 1 packet PO BID COUNT INCLUDES THE [facility] Stop: 06/28/17 22:01 Tbo-Filgrastim (Granix -) 480 mcg SQ DAILY [facility] Last Admin: 06/28/17 11:26 Dose: 480 mcg - Objective Vital Signs: Vital Signs Temperature 98.3 F 06/28/17 14:00 Pulse Rate 83 06/28/17 14:00 Respiratory Rate 20 06/28/17 14:00 Blood Pressure 132/51 06/28/17 14:00 O2 Sat by Pulse Oximetry (%) 99 06/27/17 23:53 Constitutional: Yes: No Distress, Calm Cardiovascular: Yes: Regular Rate and Rhythm Respiratory: Yes: Regular, CTA Bilaterally Gastrointestinal: Yes: Normal Bowel Sounds, Soft Musculoskeletal: Yes: WNL Extremities: Yes: WNL Neurological: Yes: Alert, Oriented Psychiatric: Yes: Alert, Oriented Labs: CBC, BMP 06/28/17 05:40 06/28/17 05:40 INR, PTT INR 1.42 (0.82-1.09) H 06/25/17 11:04 Assessment/Plan septic shock no clear source r/o pna or uti or colitis small cell lung ca with mets to the brain Neutropenia plan zosyn await for for all cx report continue current mgmt rest as per icu patient stabilizing cc time 40 min
[2017-06-28] MEDS: NAPH,MB-DB/K PH,MBDB POWDER PACKET PO SCH ×2 (16:22→21:50)
[2017-06-29] MEDS: MAGNESIUM OXIDE 400 MG TABLET (FP) PO SCH ×2 (00:11→10:16)
[2017-06-29] MEDS ORDERED: DEXTROSE 5%-WATER - 50 ML IVPB ONE ×2 (02:35→09:42)
[2017-06-29] MEDS ORDERED: PIPERACILLIN/TAZOBACTAM 3.375 GM VIAL IVPB ONE ×2 (02:35→09:41)
[2017-06-29] MEDS: PIPERACILLIN/TAZOB 3.375 GM 3.375 GM in DEXTROSE 5%-WATER - 50 ML IVPB SCH (02:43)
[2017-06-29] MEDS ORDERED: ACETAMINOPHEN 1000 MG/100 ML VIAL (NON FORMULARY) IVPB PRN (08:39)
[2017-06-29] MEDS ORDERED: PIPERACIL/TAZOB 3.375 GM 3.375 GM/50 ML PREMIX IVPB ONE ×2 (08:39)
[2017-06-29 09:03] LABS: CHLORIDE 110 mmol/L (98-107); SODIUM 145 mmol/L (136-145)
[2017-06-29 09:21] LABS: ANION GAP 7 (8-16); BLOOD UREA NITROGEN 35 mg/dL (7-18); CALCIUM 8.1 mg/dL (8.5-10.1); CO2 28 mmol/L (21-32); CREATININE 1.2 mg/dL (0.7-1.3); GLUCOSE,RANDOM 79 mg/dL (74-106); MAGNESIUM 1.3 mg/dL (1.8-2.4); PHOSPHOROUS 1.7 mg/dL (2.5-4.9)
[2017-06-29] MEDS ORDERED: PT OWN MED DRAWER 7, Y5N ONE ×2 (09:41→17:56)
[2017-06-29] MEDS ORDERED: PIPERACILLIN/TAZOB 3.375 GM 3.375 GM in DEXTROSE 5%-WATER - 50 ML IVPB SCH (10:00)
[2017-06-29] MEDS ORDERED: DEXAMETHASONE SOD PHOSPHATE 4 MG/1 ML VIAL IVPUSH SCH ×2 (10:00)
[2017-06-29] MEDS: DEXAMETHASONE SOD PHOSPHATE 4 MG/1 ML VIAL IVPUSH SCH (10:16)
[2017-06-29] MEDS: FAMOTIDINE 20 MG/50 ML IVPB 20 MG/50 ML MG IVPB SCH ×2 (10:18→21:54)
[2017-06-29 10:49] LABS: HEMATOCRIT 24.9 % (35.4-49); HEMOGLOBIN 8.8 GM/dL (11.7-16.9); MCH 33.4 pg (25.7-33.7); MCHC 35.2 g/dl (32.0-35.9); MEAN CELL VOLUME 94.7 fl (80-96); MEAN PLT VOLUME 8.2 fl (7.5-11.1); PLATELET COUNT 54 K/MM3 (134-434); RBC 2.63 M/mm3 (4.00-5.60); RDW 15.3 % (11.9-15.9); WHITE BLOOD COUNT 7.6 K/mm3 (4.0-10.0)
[2017-06-29] MEDS: TBO-FILGRASTIM 480 MCG/0.8 ML DISP.SYRIN SQ SCH (11:10)
--- NOTE | 2017-06-29 11:44 | PN ---
Progress Note, Physician History of Present Illness: stable afebrile wbc normal patient doing well family in room - Current Medication List Current Medications: Active Medications Acetaminophen (Ofirmev Injection -) 1,000 mg IVPB Q6H PRN PRN Reason: FEVER Dexamethasone Sodium Phosphate (Decadron Injection -) 2 mg IVPUSH DAILY [facility] Last Admin: 06/29/17 10:16 Dose: 2 mg Famotidine/Sodium Chloride (Pepcid 20 Mg Premixed Ivpb -) 20 mg in 50 mls @ 100 mls/hr IVPB BID [facility] Last Admin: 06/29/17 10:18 Dose: 100 mls/hr Piperacillin Sod/Tazobactam (Sod 3.375 gm/ Dextrose) 50 mls @ 100 mls/hr IVPB Q8H-IV SHIRLEY PRN Reason: Protocol Last Admin: 06/29/17 10:21 Dose: 100 mls/hr Magnesium Oxide (Mag-Ox -) 400 mg PO DAILY [facility] Stop: 06/30/17 10:01 Last Admin: 06/29/17 10:16 Dose: 400 mg Tbo-Filgrastim (Granix -) 480 mcg SQ DAILY [facility] Last Admin: 06/29/17 11:10 Dose: 480 mcg - Objective Vital Signs: Vital Signs Temperature 97.8 F 06/29/17 09:55 Pulse Rate 86 06/29/17 09:55 Respiratory Rate 18 06/29/17 09:55 Blood Pressure 139/74 06/29/17 09:55 O2 Sat by Pulse Oximetry (%) 94 L 06/29/17 09:00 Constitutional: Yes: No Distress, Calm Neck: Yes: Supple Cardiovascular: Yes: Regular Rate and Rhythm Respiratory: Yes: Regular, CTA Bilaterally Gastrointestinal: Yes: Normal Bowel Sounds, Soft Musculoskeletal: Yes: WNL Extremities: Yes: WNL Neurological: Yes: Alert, Oriented Psychiatric: Yes: Alert, Oriented Labs: CBC, BMP 06/29/17 07:30 06/29/17 07:30 INR, PTT INR 1.42 (0.82-1.09) H 06/25/17 11:04 Assessment/Plan septic shock no clear source r/o pna or uti or colitis small cell lung ca with mets to the brain Neutropenia plan will switch to oral abx and monitor wbc normal range and probably increase more resp support physio
[2017-06-29 12:18] LABS: PLATELET ESTIMATE DECREASED
[2017-06-29 12:26] LABS: TOXIC GRANULATION 4+
--- NOTE | 2017-06-29 13:41 | PN ---
Progress Note, Physician Chief Complaint: Feels better History of Present Illness: Admitted with sepsis and low WBC count Wad in ICU Today WBC is 7.6 - Current Medication List Current Medications: Active Medications Acetaminophen (Ofirmev Injection -) 1,000 mg IVPB Q6H PRN PRN Reason: FEVER Amoxicillin/Clavulanate Potassium (Augmentin - 875mg Tablet) 1 tab PO BID@0800, 1730 REPLACED BY [facility] Dexamethasone Sodium Phosphate (Decadron Injection -) 2 mg IVPUSH DAILY [facility]PLACED BY [facility] Last Admin: 06/29/17 10:16 Dose: 2 mg Famotidine/Sodium Chloride (Pepcid 20 Mg Premixed Ivpb -) 20 mg in 50 mls @ 100 mls/hr IVPB BID REPLACED BY [facility] Last Admin: 06/29/17 10:18 Dose: 100 mls/hr Magnesium Oxide (Mag-Ox -) 400 mg PO DAILY [facility]PLACED BY [facility] Stop: 06/30/17 10:01 Last Admin: 06/29/17 10:16 Dose: 400 mg Tbo-Filgrastim (Granix -) 480 mcg SQ DAILY REPLACED BY [facility] Last Admin: 06/29/17 11:10 Dose: 480 mcg - Objective Vital Signs: Vital Signs Temperature 97.8 F 06/29/17 09:55 Pulse Rate 86 06/29/17 09:55 Respiratory Rate 18 06/29/17 09:55 Blood Pressure 139/74 06/29/17 09:55 O2 Sat by Pulse Oximetry (%) 94 L 06/29/17 09:00 Constitutional: Yes: No Distress Eyes: Yes: WNL HENT: Yes: WNL Neck: Yes: WNL Cardiovascular: Yes: WNL Respiratory: Yes: WNL Gastrointestinal: Yes: WNL ...Rectal Exam: Yes: Deferred Genitourinary: Yes: WNL Breast(s): Yes: WNL Musculoskeletal: Yes: WNL Peripheral Pulses WNL: No Labs: CBC, BMP 06/29/17 07:30 06/29/17 07:30 INR, PTT INR 1.42 (0.82-1.09) H 06/25/17 11:04 Assessment/Plan Continue same trt
--- NOTE | 2017-06-29 15:07 | PN ---
Progress Note, Physician History of Present Illness: pulmonary alert,feeling better,+demarco, cough - Current Medication List Current Medications: Active Medications Acetaminophen (Ofirmev Injection -) 1,000 mg IVPB Q6H PRN PRN Reason: FEVER Amoxicillin/Clavulanate Potassium (Augmentin - 875mg Tablet) 1 tab PO BID@0800, 1730 [facility] Dexamethasone Sodium Phosphate (Decadron Injection -) 2 mg IVPUSH DAILY [facility] Last Admin: 06/29/17 10:16 Dose: 2 mg Famotidine/Sodium Chloride (Pepcid 20 Mg Premixed Ivpb -) 20 mg in 50 mls @ 100 mls/hr IVPB BID [facility] Last Admin: 06/29/17 10:18 Dose: 100 mls/hr Magnesium Oxide (Mag-Ox -) 400 mg PO DAILY [facility] Stop: 06/30/17 10:01 Last Admin: 06/29/17 10:16 Dose: 400 mg Tbo-Filgrastim (Granix -) 480 mcg SQ DAILY [facility] Last Admin: 06/29/17 11:10 Dose: 480 mcg - Objective Vital Signs: Vital Signs Temperature 97.8 F 06/29/17 09:55 Pulse Rate 86 06/29/17 09:55 Respiratory Rate 18 06/29/17 09:55 Blood Pressure 139/74 06/29/17 09:55 O2 Sat by Pulse Oximetry (%) 94 L 06/29/17 09:00 Constitutional: Yes: Well Nourished, Calm Eyes: Yes: WNL HENT: Yes: WNL Neck: Yes: WNL Cardiovascular: Yes: Regular Rate and Rhythm, S1, S2 Respiratory: Yes: Rhonchi (few rhonchi left) Gastrointestinal: Yes: Normal Bowel Sounds, Soft Extremities: Yes: WNL Edema: No Labs: CBC, BMP 06/29/17 07:30 06/29/17 07:30 INR, PTT INR 1.42 (0.82-1.09) H 06/25/17 11:04 Problem List - Problems (1) Neutropenia Code(s): D70.9 - NEUTROPENIA, UNSPECIFIED (2) Sepsis Code(s): A41.9 - SEPSIS, UNSPECIFIED ORGANISM Qualifiers: Sepsis type: sepsis due to unspecified organism Qualified Code(s): A41.9 - Sepsis, unspecified organism (3) Small cell lung cancer, left upper lobe Code(s): C34.12 - MALIGNANT NEOPLASM OF UPPER LOBE, LEFT BRONCHUS OR LUNG Assessment/Plan IMP: Septic Shock resolved Suspected Post-obstructive PNA Known metastatic Small Cell Lung CA to brain Neutropenia Likely COPD PLAN: O2 as needed BD TX PRN ABX Neupogen DR FULLER
[2017-06-29] MEDS: AMOX TR/POT CLAV 875MG/125MG TABLETS (FP) PO SCH (17:11)
[2017-06-30] MEDS: MAGNESIUM OXIDE 400 MG TABLET (FP) PO SCH (09:04)
[2017-06-30] MEDS: AMOX TR/POT CLAV 875MG/125MG TABLETS (FP) PO SCH ×2 (09:05→17:50)
[2017-06-30] MEDS: DEXAMETHASONE SOD PHOSPHATE 4 MG/1 ML VIAL IVPUSH SCH (10:14)
[2017-06-30] MEDS: FAMOTIDINE 20 MG/50 ML IVPB 20 MG/50 ML MG IVPB SCH ×2 (10:15→22:04)
--- NOTE | 2017-06-30 13:41 | PN ---
Progress Note, Physician History of Present Illness: patient doing well no complaints stable on oral abx wbc has increased still tired on walking - Current Medication List Current Medications: Active Medications Acetaminophen (Ofirmev Injection -) 1,000 mg IVPB Q6H PRN PRN Reason: FEVER Amoxicillin/Clavulanate Potassium (Augmentin - 875mg Tablet) 1 tab PO BID@0800, 1730 [facility] Last Admin: 06/30/17 09:05 Dose: 1 tab Dexamethasone Sodium Phosphate (Decadron Injection -) 2 mg IVPUSH DAILY [facility] Last Admin: 06/30/17 10:14 Dose: 2 mg Famotidine/Sodium Chloride (Pepcid 20 Mg Premixed Ivpb -) 20 mg in 50 mls @ 100 mls/hr IVPB BID [facility] Last Admin: 06/30/17 10:15 Dose: 100 mls/hr Tbo-Filgrastim (Granix -) 480 mcg SQ DAILY [facility] Last Admin: 06/29/17 11:10 Dose: 480 mcg - Objective Vital Signs: Vital Signs Temperature 98.5 F 06/30/17 09:00 Pulse Rate 102 H 06/30/17 09:00 Respiratory Rate 18 06/30/17 09:00 Blood Pressure 149/77 06/30/17 09:00 O2 Sat by Pulse Oximetry (%) 94 L 06/30/17 09:00 Constitutional: Yes: No Distress, Calm Neck: Yes: Supple Cardiovascular: Yes: Regular Rate and Rhythm Respiratory: Yes: Poor Air Entry, Other (rt sided ronchi) Gastrointestinal: Yes: Normal Bowel Sounds, Soft Musculoskeletal: Yes: WNL Extremities: Yes: WNL Neurological: Yes: Alert, Oriented Psychiatric: Yes: Alert, Oriented Labs: CBC, BMP 06/29/17 07:30 06/29/17 07:30 INR, PTT INR 1.42 (0.82-1.09) H 06/25/17 11:04 Assessment/Plan Septic Shock Suspected Post-obstructive PNA Known metastatic Small Cell Lung CA to brain Neutropenia plan continue oral abx for few more days rest as per the team patient improving
[2017-06-30 14:10] LABS: HEMATOCRIT 25.8 % (35.4-49); HEMOGLOBIN 8.8 GM/dL (11.7-16.9); MCH 32.2 pg (25.7-33.7); MCHC 34.2 g/dl (32.0-35.9); MEAN CELL VOLUME 94.2 fl (80-96); MEAN PLT VOLUME 8.5 fl (7.5-11.1); PLATELET COUNT 74 K/MM3 (134-434); RBC 2.74 M/mm3 (4.00-5.60); RDW 15.5 % (11.9-15.9)
[2017-06-30 14:24] LABS: WHITE BLOOD COUNT 32.6 K/mm3 (4.0-10.0)
[2017-06-30 14:32] LABS: ANION GAP 12 (8-16); BLOOD UREA NITROGEN 29 mg/dL (7-18); CALCIUM 8.5 mg/dL (8.5-10.1); CHLORIDE 107 mmol/L (98-107); CO2 26 mmol/L (21-32); CREATININE 1.4 mg/dL (0.7-1.3); GLUCOSE,RANDOM 141 mg/dL (74-106); POTASSIUM 3.8 mmol/L (3.5-5.1); SODIUM 145 mmol/L (136-145)
[2017-06-30] MEDS: TBO-FILGRASTIM 480 MCG/0.8 ML DISP.SYRIN SQ SCH (14:44)
--- NOTE | 2017-06-30 16:15 | PN ---
Progress Note, Physician Chief Complaint: Wants to go home History of Present Illness: Admitted with pancytopenia [place] [id number] - Current Medication List Current Medications: Active Medications Acetaminophen (Ofirmev Injection -) 1,000 mg IVPB Q6H PRN PRN Reason: FEVER Amoxicillin/Clavulanate Potassium (Augmentin - 875mg Tablet) 1 tab PO BID@0800, 1730 [facility] Last Admin: 06/30/17 09:05 Dose: 1 tab Dexamethasone Sodium Phosphate (Decadron Injection -) 2 mg IVPUSH DAILY [facility] Last Admin: 06/30/17 10:14 Dose: 2 mg Famotidine/Sodium Chloride (Pepcid 20 Mg Premixed Ivpb -) 20 mg in 50 mls @ 100 mls/hr IVPB BID [facility] Last Admin: 06/30/17 10:15 Dose: 100 mls/hr - Objective Vital Signs: Vital Signs Temperature 97.9 F 06/30/17 15:25 Pulse Rate 93 H 06/30/17 15:25 Respiratory Rate 18 06/30/17 15:25 Blood Pressure 140/68 06/30/17 15:25 O2 Sat by Pulse Oximetry (%) 94 L 06/30/17 09:00 Constitutional: Yes: No Distress Eyes: Yes: WNL, Occular Prosthesis Neck: Yes: WNL Cardiovascular: Yes: WNL Respiratory: Yes: WNL ...Rectal Exam: Yes: WNL, Deferred Genitourinary: Yes: WNL Musculoskeletal: Yes: WNL Peripheral Pulses WNL: Yes Neurological: Yes: Alert Labs: CBC, BMP 06/30/17 13:50 06/30/17 13:50 INR, PTT INR 1.42 (0.82-1.09) H 06/25/17 11:04 Assessment/Plan DC home in AM
[2017-07-01] MEDS: AMOX TR/POT CLAV 875MG/125MG TABLETS (FP) PO SCH (08:10)
--- NOTE | 2017-07-01 09:23 | DS ---
Physical Examination Vital Signs: Vital Signs Temperature 97.8 F 07/01/17 05:30 Pulse Rate 82 07/01/17 05:30 Respiratory Rate 18 06/30/17 22:00 Blood Pressure 132/70 07/01/17 05:30 O2 Sat by Pulse Oximetry (%) 95 06/30/17 22:00 Findings/Remarks: Lung Ca with brain mets on chemo Admitted with thrombocytopenia and sepsis WBC was 0.3 now 33663.[id number] on PO antibiotics Follow up with with his oncologist at [facility] Labs: CBC, BMP 06/30/17 13:50 06/30/17 13:50 Discharge Summary Reason For Visit: SEPSIS Current Active Problems Neutropenia (Acute) Sepsis (Acute) Small cell lung cancer, left upper lobe (Acute) Condition: Critical - Instructions Referrals: Alayna Pichardo MD [Primary Care Provider] - - Home Medications Comprehensive Discharge Medication List: Ambulatory Orders Acetaminophen [Tylenol .Regular Strength -] 650 mg PO Q6HPO PRN #0 tablet Atorvastatin Ca [Lipitor] 10 mg PO DAILY #0 tablet 08/16/13 Aspirin [ASA -] 81 mg PO DAILY 06/25/17 Dexamethasone 4 mg PO TID 06/25/17 Gabapentin [Neurontin -] 300 mg PO TID 06/25/17 Telmisartan/Hydrochlorothiazid [Micardis Hct 80-25 mg Tablet] 1 each PO DAILY
[2017-07-01] MEDS: DEXAMETHASONE SOD PHOSPHATE 4 MG/1 ML VIAL IVPUSH SCH (09:44)
[2017-07-01] MEDS: FAMOTIDINE 20 MG/50 ML IVPB 20 MG/50 ML MG IVPB SCH (09:44)
[2017-07-01 11:01] VITALS: BP 141/75; PULSE 92; TEMP 98.2
== END 2017-07-01 12:48 | disposition home health service (06) | DRG 871 ==
LOC: JER 10:22 → JERBED 13:32 → JICU 20:51 → J6S 06-28 20:10
PROVIDERS: ADMIT Internal Medicine; ATTEND Internal Medicine
PROC: 30233H1 Transfusion of Nonautologous Whole Blood into Peripheral Vein, Percutaneous Approach (ICD-10-PCS; principal; 2017-06-26)
DX: A41.9 Sepsis, unspecified organism (principal); R65.21 Severe sepsis with septic shock; J18.9 Pneumonia, unspecified organism; C79.31 Secondary malignant neoplasm of brain; I24.8 Other forms of acute ischemic heart disease; N17.9 Acute kidney failure, unspecified; C34.90 Malignant neoplasm of unspecified part of unspecified bronchus or lung; D61.818 Other pancytopenia; J98.11 Atelectasis; D70.3 Neutropenia due to infection; Z85.118 Personal history of other malignant neoplasm of bronchus and lung; E86.0 Dehydration; I10 Essential (primary) hypertension; E78.5 Hyperlipidemia, unspecified; Z96.641 Presence of right artificial hip joint; R00.0 Tachycardia, unspecified; I45.10 Unspecified right bundle-branch block; I95.9 Hypotension, unspecified; Z66 Do not resuscitate; M19.90 Unspecified osteoarthritis, unspecified site; M48.00 Spinal stenosis, site unspecified; E87.5 Hyperkalemia; D64.9 Anemia, unspecified; R19.7 Diarrhea, unspecified; E83.42 Hypomagnesemia; E87.6 Hypokalemia; E83.39 Other disorders of phosphorus metabolism
CPT/HCPCS: 36415; 36430; 71045-TC-FY; 71250-TC; 80048; 80053; 81003; 82436; 82803; 82962; 83605; 83735; 84100; 84132; 84133; 84300; 84484; 85025; 85027; 85610; 85730; 86480; 86850; 86900; 86901; 86922; 87040; 87086; 87102; 87116; 87206; 87210; 93005; 93010; 93306-TC; 97116-GP; 97162-GP; 99285-25; J0131; J1447; J7030; P9038; P9058